=== PATIENT | female | born 1945 | race Two or more races ===

== ENCOUNTER 2022-04-28 13:16 | Emergency (ER) | payer BC, MEDICAID ==
[2022-04-28 13:34] VITALS: BP 153/110
== END 2022-04-28 20:50 | disposition left against medical advice (07) ==
LOC: ER 13:22
DX: S09.90XA Unspecified injury of head, initial encounter (principal); R11.0 Nausea; Z53.21 Procedure and treatment not carried out due to patient leaving prior to being seen by health care provider; X58.XXXA Exposure to other specified factors, initial encounter; Y93.89 Activity, other specified; Y92.89 Other specified places as the place of occurrence of the external cause; Y99.8 Other external cause status
CPT/HCPCS: 70450

== ENCOUNTER 2023-06-19 14:15 | Inpatient (IN) | payer MEDICAID ==
[~2023-06-19] VITALS: Ht 154.9 cm; Wt 73.2 kg
[2023-06-19 15:00] LABS: Basophils # (auto) 0 10 ^3/uL (0-0.2); Basophils % (auto) 0.3 % (0.0-2.0); Eosinophils # (auto) 0.2 10 ^3/uL (0-0.8); Eosinophils % (auto) 3.2 % (0.0-7.0); Hematocrit 37.1 % (36.0-46.0); Hemoglobin 12.4 g/dL (12.2-16.2); Lymphocytes # (auto) 1.1 10 ^3/uL (0.4-5.4); Lymphocytes % (auto) 18.1 % (10.0-50.0); Mean Corpuscular Hemoglobin 30.8 pg (28.0-32.0); Mean Corpuscular Hgb Conc. 33.4 g/dL (32.0-36.0); Mean Corpuscular Volume 92.3 fL (80.0-100.0); Monocytes # (auto) 0.5 10 ^3/uL (0-1.3); Monocytes % (auto) 8.4 % (0.0-12.0); Neutrophils # (auto) 4.1 10 ^3/uL (1.6-8.6); Red Blood Cells 4.02 10^6/uL (4.0-5.20); Red Cell Distribution Width 13.5 % (11.8-14.3); White Blood Cell 5.9 10^3/uL (4.4-10.8)
[2023-06-19 15:05] LABS: Urine Bacteria FEW /hpf (None Seen); Urine Blood Negative /uL (Negative); Urine Clarity Clear (Clear); Urine Color Yellow (Yellow); Urine Protein, UAD Negative (Negative); Urine Specific Gravity 1.027 (1.001-1.035); Urine Urobilinogen Normal (Negative); Urine WBC 8 /hpf (0 - 5); Urine pH 5.5 (5.0-8.0)
[2023-06-19 15:10] LABS: Chloride 104 mmol/L (98-107); Potassium 4.7 mmol/L (3.5-5.1); Sodium 138 mmol/L (136-145)
[2023-06-19 15:11] LABS: Anion Gap 4 (5-15); Carbon Dioxide 30 mmol/L (20-30)
[2023-06-19 15:16] LABS: BUN/Creatinine Ratio 20.4 (10.0-20.0); Blood Urea Nitrogen 19 mg/dL (9-23); Glucose 338 mg/dL (74-106)
[2023-06-19] MEDS ORDERED: ONDANSETRON HCL 4 MG/2 ML VIAL IV PRN (21:00)
[2023-06-19] MEDS ORDERED: ACETAMINOPHEN 325 MG TAB PO PRN (21:00)
[2023-06-19] MEDS ORDERED: DEXTROSE (50%) 50ML SYRG IV PRN (21:00)
[2023-06-19] MEDS: InsuLIN REG 1unit/0.01ml Soln (100units/ml) SC SCH (22:00)
[2023-06-19] MEDS: PANTOPRAZOLE 40 MG/10 ML VIAL INJ IV ONE (23:36)
[2023-06-19] MEDS: methylPREDNISolone SOD SUCC 125 MG/2 ML VL IV ONE (23:36)
[2023-06-19] MEDS: ACCU-CHEK COMFORT CURVE STRIP VI SCH (23:38)
[2023-06-19] MEDS: HYDROcodone-ACET 5/325MG TAB PO PRN (23:44)
[2023-06-20 04:00] VITALS: PULSE 82; RESP 17; O2SAT 95
[2023-06-20] MEDS ORDERED: ATOR10TA PO (04:17)
[2023-06-20] MEDS ORDERED: LOSA25TA15 PO (04:17)
[2023-06-20] MEDS ORDERED: METF-372 PO (04:17)
[2023-06-20 06:24] LABS: Basophils # (auto) 0 10 ^3/uL (0-0.2); Basophils % (auto) 0.2 % (0.0-2.0); Eosinophils # (auto) 0 10 ^3/uL (0-0.8); Eosinophils % (auto) 0.2 % (0.0-7.0); Hemoglobin 12.8 g/dL (12.2-16.2); Lymphocytes # (auto) 0.6 10 ^3/uL (0.4-5.4); Lymphocytes % (auto) 11.5 % (10.0-50.0); Mean Corpuscular Hemoglobin 30.7 pg (28.0-32.0); Mean Corpuscular Hgb Conc. 33.6 g/dL (32.0-36.0); Mean Corpuscular Volume 91.4 fL (80.0-100.0); Monocytes # (auto) 0.1 10 ^3/uL (0-1.3); Monocytes % (auto) 1.4 % (0.0-12.0); Neutrophils # (auto) 4.7 10 ^3/uL (1.6-8.6); Neutrophils % (auto) 86.7 % (37.0-80.0); Red Blood Cells 4.15 10^6/uL (4.0-5.20); Red Cell Distribution Width 13.6 % (11.8-14.3); White Blood Cell 5.4 10^3/uL (4.4-10.8)
[2023-06-20 06:43] LABS: Alanine Aminotransferase 13 U/L (7-40); Albumin 4.2 g/dL (3.2-4.8); Alkaline Phosphatase 125 U/L (46-116); Anion Gap 6 (5-15); Aspartate Aminotransferase 18 U/L (13-40); BUN/Creatinine Ratio 18.2 (10.0-20.0); Blood Urea Nitrogen 14 mg/dL (9-23); Calcium 9.2 mg/dL (8.5-10.1); Carbon Dioxide 26 mmol/L (20-30); Chloride 103 mmol/L (98-107); Glucose 198 mg/dL (74-106); Sodium 135 mmol/L (136-145)
[2023-06-20 06:44] LABS: Bilirubin, Total 0.5 mg/dL (0.2-1.0); Total Protein 7.2 g/dL (5.7-8.2)
[2023-06-20 08:00] VITALS: PULSE 68; RESP 16; O2SAT 96
[2023-06-20] MEDS: cefTRIAXone 1GM/50ML D5W 50 ML IV SCH (09:57)
[2023-06-20] MEDS: DOCUSATE SOD 100 MG CAP PO PRN (12:32)
[2023-06-20 12:42] VITALS: BP 116/71; PULSE 75; RESP 18; TEMP 97.9; O2SAT 97
[2023-06-20] MEDS: MESALAMINE 400mg Delayed Release Cap PO SCH (16:10)
[2023-06-20 17:00] VITALS: BP 149/71; PULSE 86; RESP 19; TEMP 97.9; O2SAT 97
[2023-06-20 20:00] VITALS: BP 121/70; PULSE 68; PULSE 72; RESP 16; RESP 18; TEMP 36.6; O2SAT 96
[2023-06-20 22:00] VITALS: BP 129/58; PULSE 60; RESP 14; TEMP 97.5; O2SAT 97
[2023-06-20] MEDS: metroNIDAZOLE 500MG/100ML 100 ML IV SCH (23:54)
[2023-06-21] VITALS (7 sets, daily range): BP systolic 122–156; BP diastolic 66–74; PULSE 60–68; RESP 18–20; TEMP 97.7–98.5; O2SAT 0–100
[2023-06-21 07:11] LABS: Basophils # (auto) 0 10 ^3/uL (0-0.2); Basophils % (auto) 0.2 % (0.0-2.0); Eosinophils # (auto) 0.1 10 ^3/uL (0-0.8); Eosinophils % (auto) 0.9 % (0.0-7.0); Hematocrit 35.8 % (36.0-46.0); Hemoglobin 11.8 g/dL (12.2-16.2); Lymphocytes # (auto) 1.4 10 ^3/uL (0.4-5.4); Lymphocytes % (auto) 19.9 % (10.0-50.0); Mean Corpuscular Hemoglobin 30.1 pg (28.0-32.0); Mean Corpuscular Hgb Conc. 32.8 g/dL (32.0-36.0); Mean Corpuscular Volume 91.7 fL (80.0-100.0); Monocytes # (auto) 0.8 10 ^3/uL (0-1.3); Monocytes % (auto) 10.8 % (0.0-12.0); Neutrophils # (auto) 4.8 10 ^3/uL (1.6-8.6); Neutrophils % (auto) 68.2 % (37.0-80.0); Red Blood Cells 3.91 10^6/uL (4.0-5.20); Red Cell Distribution Width 13.3 % (11.8-14.3)
[2023-06-21 07:22] LABS: Chloride 108 mmol/L (98-107); Sodium 140 mmol/L (136-145)
[2023-06-21 07:23] LABS: Anion Gap 5 (5-15); Calcium 9.1 mg/dL (8.5-10.1); Carbon Dioxide 27 mmol/L (20-30)
[2023-06-21 07:28] LABS: BUN/Creatinine Ratio 16.9 (10.0-20.0); Blood Urea Nitrogen 12 mg/dL (9-23); Glucose 82 mg/dL (74-106)
[2023-06-21 08:20] LABS: Erythrocyte Sedimentation Rate 13 mm/hr (0-20)
[2023-06-21] MEDS: methylPREDNISolone SOD SUCC 40 MG/ML VL IV SCH (08:47)
[2023-06-21] MEDS: GOLYTELY 4L KIT PO ONE (18:03)
[2023-06-22 04:46] LABS: Basophils # (auto) 0 10 ^3/uL (0-0.2); Basophils % (auto) 0.2 % (0.0-2.0); Eosinophils # (auto) 0 10 ^3/uL (0-0.8); Eosinophils % (auto) 0.5 % (0.0-7.0); Hematocrit 34.9 % (36.0-46.0); Hemoglobin 11.9 g/dL (12.2-16.2); Lymphocytes # (auto) 1.5 10 ^3/uL (0.4-5.4); Lymphocytes % (auto) 19.7 % (10.0-50.0); Mean Corpuscular Hemoglobin 30.9 pg (28.0-32.0); Mean Corpuscular Hgb Conc. 34.1 g/dL (32.0-36.0); Mean Corpuscular Volume 90.6 fL (80.0-100.0); Monocytes # (auto) 0.9 10 ^3/uL (0-1.3); Monocytes % (auto) 11.8 % (0.0-12.0); Neutrophils % (auto) 67.8 % (37.0-80.0); Red Blood Cells 3.85 10^6/uL (4.0-5.20); Red Cell Distribution Width 13.3 % (11.8-14.3); White Blood Cell 7.4 10^3/uL (4.4-10.8)
[2023-06-22 04:55] LABS: Chloride 106 mmol/L (98-107); Potassium 3.6 mmol/L (3.5-5.1); Sodium 141 mmol/L (136-145)
[2023-06-22 04:56] LABS: Anion Gap 5 (5-15); Calcium 8.8 mg/dL (8.5-10.1); Carbon Dioxide 30 mmol/L (20-30)
[2023-06-22 05:00] VITALS: BP 136/60; PULSE 65; RESP 18; TEMP 97.7; O2SAT 98
[2023-06-22 05:01] LABS: BUN/Creatinine Ratio 14.5 (10.0-20.0); Blood Urea Nitrogen 10 mg/dL (9-23); Glucose 63 mg/dL (74-106)
[2023-06-22] MEDS: GOLYTELY 4L KIT PO ONE (06:00)
[2023-06-22] MEDS: MAGNESIUM CITRATE SOLUTION 300 ML BTL PO ONE (07:44)
[2023-06-22 13:00] VITALS: BP 156/80; PULSE 57; RESP 18; TEMP 97.7; O2SAT 97
[2023-06-22] MEDS ORDERED: MIDAZOLAM HCL 5 MG/ML-1ML VIAL ONE (14:47)
[2023-06-22] MEDS ORDERED: diphenhdrAMINE HCL 50 MG/1 ML VL ONE (14:47)
[2023-06-22] MEDS ORDERED: fentaNYL CITRATE 100 MCG/2 ML VL ONE (14:47)
[2023-06-22] MEDS ORDERED: SODIUM CHLORIDE LOCK 10 ML ONE (14:51)
[2023-06-22 16:19] VITALS: O2SAT 100
[2023-06-22 16:45] VITALS: O2SAT 94
[2023-06-22 22:00] VITALS: BP 118/69; PULSE 75; RESP 16; TEMP 97.6; O2SAT 94
[2023-06-23 05:00] VITALS: BP 137/60; PULSE 54; RESP 18; TEMP 98; O2SAT 100
[2023-06-23 08:25] VITALS: BP 168/77; PULSE 72; RESP 18; TEMP 97.5; O2SAT 96
[2023-06-23] MEDS: LOSARTAN POTASSIUM 25 MG TAB PO ONE (11:34)
[2023-06-23 12:20] VITALS: BP 149/80; PULSE 96; RESP 20; TEMP 97.8; O2SAT 97
[2023-06-23 16:42] VITALS: BP 149/80; PULSE 96; RESP 20; TEMP 36.6; O2SAT 97
[2023-06-23] MEDS: PNEUMOCOCCAL VACC POLYS 25 MCG/0.5 ML VIAL IM ONE (17:00)
[2023-06-24] MEDS ORDERED: LOSARTAN POTASSIUM 25 MG TAB PO SCH (10:00)
== END 2023-06-23 17:40 | disposition home or self-care (01) | DRG 245 ==
LOC: ER 14:15 → OVERFLOW 20:51 → WEST WING 06-20 03:21
PROVIDERS: ADMIT Nurse Practitioner; ATTEND Nurse Practitioner Acute Care
PROC: 0DBN8ZX Excision of Sigmoid Colon, Via Natural or Artificial Opening Endoscopic, Diagnostic (ICD-10-PCS; 2023-06-22)
PROC: 0DBF8ZX Excision of Right Large Intestine, Via Natural or Artificial Opening Endoscopic, Diagnostic (ICD-10-PCS; principal; 2023-06-22 16:19)
DX: K51.911 Ulcerative colitis, unspecified with rectal bleeding (principal); E11.65 Type 2 diabetes mellitus with hyperglycemia; K44.9 Diaphragmatic hernia without obstruction or gangrene; M47.816 Spondylosis without myelopathy or radiculopathy, lumbar region; E78.5 Hyperlipidemia, unspecified; I10 Essential (primary) hypertension; Z82.49 Family history of ischemic heart disease and other diseases of the circulatory system; Z88.8 Allergy status to other drugs, medicaments and biological substances; Z79.899 Other long term (current) drug therapy; Z83.3 Family history of diabetes mellitus; N39.0 Urinary tract infection, site not specified
CPT/HCPCS: 36415; 45380; 74176; 80048; 80053; 81001; 82270; 82378; 82962; 83036; 83690; 85025; 85652; 86141; 87045; 87086; 87427; C9113; G0378; J1815; J2250; J3490

== ENCOUNTER → 2023-12-20 | Day surgery (SDC) | payer MEDICAID ==
[2023-12-16 12:14] LABS: Basophils # (auto) 0 10 ^3/uL (0-0.2); Basophils % (auto) 0.6 % (0.0-2.0); Eosinophils # (auto) 0.1 10 ^3/uL (0-0.8); Eosinophils % (auto) 2.5 % (0.0-7.0); Hematocrit 38.3 % (36.0-46.0); Hemoglobin 13.1 g/dL (12.2-16.2); Lymphocytes # (auto) 1.5 10 ^3/uL (0.4-5.4); Lymphocytes % (auto) 28.3 % (10.0-50.0); Mean Corpuscular Hemoglobin 30.9 pg (28.0-32.0); Mean Corpuscular Hgb Conc. 34.1 g/dL (32.0-36.0); Mean Corpuscular Volume 90.4 fL (80.0-100.0); Monocytes # (auto) 0.5 10 ^3/uL (0-1.3); Monocytes % (auto) 8.6 % (0.0-12.0); Neutrophils # (auto) 3.1 10 ^3/uL (1.6-8.6); Red Blood Cells 4.24 10^6/uL (4.0-5.20); Red Cell Distribution Width 14.7 % (11.8-14.3); White Blood Cell 5.2 10^3/uL (4.4-10.8)
[2023-12-16 12:30] LABS: INR 0.99 (0.9-1.15); Partial Thromboplastin Time 27.1 SEC (24.5-34.5); Prothrombin Time 10.5 sec (9.3-11.8)
[2023-12-16 12:56] LABS: Alanine Aminotransferase 14 U/L (7-40); Albumin 4.1 g/dL (3.2-4.8); Alkaline Phosphatase 87 U/L (46-116); Anion Gap 8 (5-15); Aspartate Aminotransferase 17 U/L (13-40); BUN/Creatinine Ratio 13.9 (10.0-20.0); Bilirubin, Total 0.6 mg/dL (0.2-1.0); Blood Urea Nitrogen 10 mg/dL (9-23); Calcium 9.3 mg/dL (8.7-10.4); Carbon Dioxide 28 mmol/L (20-30); Chloride 102 mmol/L (98-107); Glucose 92 mg/dL (74-106); Sodium 138 mmol/L (136-145); Total Protein 6.8 g/dL (5.7-8.2)
[~2023-12-20] VITALS: Ht 149.9 cm; Wt 70.3 kg
[~2023-12-20] MED LIST: METF-372 PO; SODIUM CHLORIDE LOCK 10 ML ONE
[2023-12-20 12:42] VITALS: O2SAT 97
[2023-12-20] MEDS: LIDOCAINE VISCOUS 2% 15ML UD ONE (12:45)
[2023-12-20] MEDS: diphenhdrAMINE HCL 50 MG/1 ML VL ONE (12:47)
[2023-12-20] MEDS: fentaNYL CITRATE 100 MCG/2 ML VL ONE (12:47)
[2023-12-20] MEDS: MIDAZOLAM HCL 5 MG/ML-1ML VIAL ONE (12:47)
[2023-12-20 12:57] VITALS: TEMP 98.2; O2SAT 94
[2023-12-20 13:27] VITALS: BP 145/76; PULSE 70; RESP 15; O2SAT 96
== END | disposition home or self-care (01) ==
LOC: GI 09:27
PROVIDERS: ATTEND Internal Medicine Gastroenterology
DX: R10.13 Epigastric pain (principal); K29.50 Unspecified chronic gastritis without bleeding; K44.9 Diaphragmatic hernia without obstruction or gangrene; K29.80 Duodenitis without bleeding; K51.30 Ulcerative (chronic) rectosigmoiditis without complications; I10 Essential (primary) hypertension; E11.9 Type 2 diabetes mellitus without complications; Z79.84 Long term (current) use of oral hypoglycemic drugs; Z79.899 Other long term (current) drug therapy; Z98.51 Tubal ligation status; Z87.891 Personal history of nicotine dependence; Z88.8 Allergy status to other drugs, medicaments and biological substances
CPT/HCPCS: 36415; 43239; 80053; 82962; 85025; 85610; 85730; 88305; 88312; 88342; J1200; J2250; J3010; J7030

== ENCOUNTER 2025-02-03 22:51 | Inpatient (IN) | payer MEDICAID ==
[~2025-02-03] VITALS: Ht 152.4 cm; Wt 73.0 kg
[~2025-02-03 22:51] MED LIST changes: -SODIUM CHLORIDE LOCK 10 ML ONE
[2025-02-04 00:23] LABS: Hematocrit 41.7 % (36.0-46.0); Hemoglobin 14.3 g/dL (12.2-16.2); Mean Corpuscular Hemoglobin 31.7 pg (28.0-32.0); Mean Corpuscular Volume 92.8 fL (80.0-100.0)
[2025-02-04 00:53] LABS: Alanine Aminotransferase 15 U/L (7-40); Albumin 4.2 g/dL (3.2-4.8); Alkaline Phosphatase 108 U/L (46-116); Anion Gap 9 (5-15); BUN/Creatinine Ratio 16.7 (10.0-20.0); Bilirubin, Total 0.4 mg/dL (0.2-1.0); Blood Urea Nitrogen 16 mg/dL (9-23); Calcium 9.0 mg/dL (8.7-10.4); Carbon Dioxide 28 mmol/L (20-31); Chloride 103 mmol/L (98-107); Glucose 143 mg/dL (74-106); Lipase 30 U/L (12-53); Potassium 4.0 mmol/L (3.5-5.1); Sodium 140 mmol/L (136-145); Total Protein 7.2 g/dL (5.7-8.2)
[2025-02-04 01:03] LABS: Lactic Acid w/Reflex 2.2 mmol/L (0.4-2.0)
[2025-02-04 02:17] LABS: Total Cells Counted 100.0 (100)
[2025-02-04 03:25] LABS: Alanine Aminotransferase 16 U/L (7-40); Albumin 4.1 g/dL (3.2-4.8); Alkaline Phosphatase 103 U/L (46-116); Anion Gap 11 (5-15); BUN/Creatinine Ratio 27.9 (10.0-20.0); Bilirubin, Total 0.5 mg/dL (0.2-1.0); Calcium 8.8 mg/dL (8.7-10.4); Carbon Dioxide 28 mmol/L (20-31); Chloride 103 mmol/L (98-107); Lipase 24 U/L (12-53); Potassium 4.4 mmol/L (3.5-5.1); Sodium 142 mmol/L (136-145); Total Protein 6.7 g/dL (5.7-8.2)
[2025-02-04 03:36] LABS: Blood Urea Nitrogen 24 mg/dL (9-23); Glucose 150 mg/dL (74-106)
--- NOTE | 2025-02-04 04:22 | ED.PDOC ---
History of Present Illness HPI Comments 79-year-old female who presents with chief complaint of nonradiating, epigastric abdominal pain, nausea, and vomiting. Endorsement of sudden, unprovoked, atraumatic onset of symptoms, last night, with no prior history. Pain is a 6/10 in severity. Associated decreased stool output. Significant history for ulcerative colitis. Denies any bloody or bilious vomitus, diarrhea, constipation, fever, chills, further associated symptoms. REVIEW OF SYSTEMS: General: No fever, no chills, or fatigue HEENT: No sore throat, no earache, no congestion, no neck pain. Cardiac: No chest pain. No palpitations. Lungs: No shortness of breath, no cough. GI: Abdominal pain, nausea, vomiting, no diarrhea, no constipation : No dysuria, frequency, or urgency. No hematuria. Musculoskeletal: No joint pain , no joint swelling, no extremity edema. Skin: No rash, no itching. Neuro: No headache, no dizziness, no weakness PHYSICAL EXAM: General: Awake, alert and oriented. No acute distress. Skin: Skin in warm, dry and intact. Appropriate color for ethnicity. HEENT: The head is normocephalic and atraumatic. Conjunctivae are clear without exudates or hemorrhage. Sclera is non-icteric. EOM are intact. No signs of nystagmus. Eyelids are normal in appearance without swelling or lesions. Oral mucosa is pink and moist Neck: The neck is supple with normal range of motion. No JVD. Cardiac: Heart rate and rhythm are normal. No murmurs, gallops, or rubs are auscultated. Respiratory: No signs of respiratory distress. Lung sounds are clear in all lobes bilaterally without rales, rhonchi, or wheezes. Abdominal: Epigastric abdominal tenderness. CVA tenderness. Remaining abdomen is soft, non-tender without distention, guarding or rigidity. Bowel sounds are present and normoactive in all four quadrants. Extremities: Upper and lower extremities are atraumatic in appearance without deformity or edema. Neurological: The patient is awake, alert and oriented to person, place, and time with normal speech. Speech is clear. There is no facial asymmetry. Psychiatric: Appropriate mood and affect. Good judgement and insight. Chief Complaint: Abdominal Pain Time Seen by MD: 00:43 Primary Care Provider: TAMMY Allergies: Coded Allergies: Lisinopril (Verified Allergy, Unknown, 04/28/22) Home Meds Reported Medications Mesalamine (DELZICOL) 400 Mg Cap, 800 MG PO, CAP 02/04/25 Losartan Potassium (Losartan Potassium) 50 Mg Tab, 1 TAB PO BID 02/04/25 Atorvastatin Calcium (ATORVASTATIN CALCIUM) 10 Mg Tab, 1 TAB PO DAILY 02/04/25 Metformin Hydrochloride (Metformin Hcl) 1,000 Mg Tab, 1 TAB PO BID, #60 TAB 5 Refills 06/20/23 Information Source: Patient, Relative Mode of Arrival: Ambulatory Past Medical History PAST MEDICAL HISTORY: DM, High Lipids, HTN Surgical History: Denies all surgeries [employer]POSITION [employer]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 Family History Family History: Family hx of DM, Family hx of HTN Social History Smoker: Non-Smoker Alcohol: Denies ETOH Use Drugs: Denies Drug Use Lives In: Home All Other Systems: Reviewed and Negative (As per HPI) Physical Exam General Appearance: No Apparent Distress, Normal HEENT: Normal ENT Inspection, Pharynx Normal, TMs Normal Neck: Full Range of Motion, Non-Tender, Normal, Normal Inspection Respiratory: Chest Non-Tender, Lungs Clear, No Accessory Muscle Use, No Respiratory Distress, Normal Breath Sounds Cardiovascular: No Edema, No JVD, No Murmur, No Gallop, Normal Peripheral Pulses, Regular Rate/Rhythm Breast Exam: Deferred Gastrointestinal: No Organomegaly, No Pulsatile Mass, Normal Bowel Sounds, Soft, Tenderness (EPIGASTRIC WITH BILATERAL CVA TENDERNESS) Genitalia: Deferred Pelvic: Deferred Rectal: Deferred Extremities: No calf tenderness, Normal capillary refill, Normal inspection, Normal range of motion, Non-tender, No pedal edema Musculoskeletal : Apperance: Normal Neurologic: Alert, family assistant II-XII nml as Tested, No Motor Deficits, Normal Affect, Normal Mood, No Sensory Deficits Cerebellar Function: Normal Reflexes: Normal Skin: Dry, Normal Color, Warm Lymphatic: No Adenopathy Was a procedure done? Was a procedure done?: No Differential Dx Considerations may include: DIFFERENTIAL DIAGNOSES CONSIDERED INCLUDE: ABDOMINAL AORTIC ANEURYSM, TN, ESOPHAGEAL RUPTURE, INTESTINAL OBSTRUCTION, MESENTERIC ISCHEMIA, PERFORATED VISCUS OR SOLID ORGAN RUPTURE, CHF WITH HEPATOMEGALY, PNEUMONIA, ABSCESS, APPENDICITIS, BILIARY DISEASE, DIVERTICULITIS, GASTRITIS, GASTROENTERITIS, HEPATITIS, HERNIA, INFLAMMATORY BOWEL DISEASE, PANCREATITIS, PEPTIC ULCER DISEASE, URINARY TRACT INFECTION, URETERAL COLIC, CONSTIPATION, GERD, IRRITABLE SYNDROME, ABDOMINAL WALL PAIN, NONSPECIFIC ABDOMINAL PAIN, HERPES ZOSTER, NEPHROLITHIASIS. [ ]ALSO RUPTURED ECTOPIC , OVARIAN TORSION/CYST, TUBO- OVARIAN ABSCESS, PID, ENDOMETRIOSIS, MITTLESCHMERZ. X-Ray, Labs, Meds, VS Vital Signs Date Time Temp Pulse Resp B/P (MAP) Pulse Ox O2 Delivery O2 Flow Rate FiO2 02/04/25 06:10 93 Room Air* 0 21 02/04/25 06:09 98.5 71 14 118/74 (89) 93 98.5 02/03/25 22:55 97.8 91 20 166/72 93 97.8 Lab Test 02/04/25 06:43 02/04/25 02:30 02/03/25 23:41 02/03/25 23:03 Range/Units Troponin I High Sensitivity 47 *H 45 *H 14 </=34 ng/L Sodium Level 142 140 136-145 mmol/L Potassium Level 4.4 4.0 3.5-5.1 mmol/L Chloride Level 103 103 98-107 mmol/L Carbon Dioxide Level 28 28 20-31 mmol/L Anion Gap 11 9 5-15 Blood Urea Nitrogen 24 H 16 9-23 mg/dL Creatinine 0.86 0.96 0.550-1.02 mg/dL Glomerular Filtration Rate Calc 69 61 >90 mL/min BUN/Creatinine Ratio 27.9 H 16.7 10.0-20.0 Serum Glucose 150 H 143 H 74-106 mg/dL Lactic Acid Level 2.9 *H 2.2 *H 0.4-2.0 mmol/L Calcium Level 8.8 9.0 8.7-10.4 mg/dL Total Bilirubin 0.5 0.4 0.2-1.0 mg/dL Aspartate Amino Transferase (AST) 22 22 13-40 U/L Alanine Aminotransferase (ALT) 16 15 7-40 U/L Alkaline Phosphatase 103 108 46-116 U/L Total Protein 6.7 7.2 5.7-8.2 g/dL Albumin 4.1 4.2 3.2-4.8 g/dL Lipase 24 30 12-53 U/L White Blood Count 10.4 4.4-10.8 10^3/uL Red Blood Count 4.50 4.0-5.20 10^6/uL Hemoglobin 14.3 12.2-16.2 g/dL Hematocrit 41.7 36.0-46.0 % Mean Corpuscular Volume 92.8 80.0-100.0 fL Mean Corpuscular Hemoglobin 31.7 28.0-32.0 pg Mean Corpuscular Hemoglobin Concent 34.2 32.0-36.0 g/dL Red Cell Distribution Width 13.7 11.8-14.3 % Platelet Count 172 140-450 10^3/uL Mean Platelet Volume 9.5 6.9-10.8 fL Neutrophils (%) (Auto) 37.0-80.0 % Lymphocytes (%) (Auto) 10.0-50.0 % Monocytes (%) (Auto) 0.0-12.0 % Basophils (%) (Auto) 0.0-2.0 % Neutrophils # (Auto) 1.6-8.6 10 ^3/uL Lymphocytes # (Auto) 0.4-5.4 10 ^3/uL Monocytes # (Auto) 0-1.3 10 ^3/uL Differential Total Cells Counted 100.0 100 Neutrophils % (Manual) 93 H 37.0-80.0 Band Neutrophils % (Manual) 4 Lymphocytes % (Manual) 2 L 10.0-50.0 Monocytes % (Manual) 1 0-12 Eosinophils % (Manual) 0 0-7 Basophils % (Manual) 0 0.0-2.0 Metamyelocytes % (manual) 0 Myelocytes % (Manual) 0 Promyelocytes % (Manual) 0 Blast Cells % (Manual) 0 Reactive Lymphocytes 0 Platelet Estimate Adequate POC Glucose 151 H 70-106 mg/dl Current Medications Medications (Trade) Dose Ordered Sig/Larry Route Start Time Stop Time Status Last Admin Aspirin 324 mg ONCE ONCE PO 02/04/25 04:30 02/04/25 04:31 DC 02/04/25 06:07 [place] [id number] Ph: [phone] DIAGNOSTIC IMAGING Diagnostic Imaging Report : [id number] Signed PATIENT: AYESHA COHEN ACCT: [id number] UNIT: [id number] : 1945 LOC: ER ROOM / BED: / AGE / SEX: 79 / F ADM STATUS: REG ER SERVICE DT: 09/419 ORDERING PHYSICIAN: REYNALDO COLBY MD PROCEDURE(s): CXR1 - CHEST XRAY 1 VIEW REASON: Epigastric pain ORDER NUMBER(s): [id number], ACCESSION NUMBER(s): [id number] CHEST RADIOGRAPH Indication: Epigastric pain Technique: 1 view Comparison: None FINDINGS: Lines and Tubes: None Lungs/Pleura: No focal consolidation, pleural effusion or pneumothorax. Mild scarring/atelectasis of the lung bases. Cardiomediastinum: Normal heart size. Aortic atherosclerosis. Other: No acute osseous abnormality. IMPRESSION: 1. No acute cardiopulmonary abnormality. ATED BY: BERNARDA THORNTON MD DICTATED DATE/TIME: 02/04/25457 SIGNED BY: BERNARDA THORNTON MD SIGNED DATE/TIME: 02/04/25457 CC: Time of 1ST Reevaluation: 00:13 Reevaluation 1ST: Unchanged Patient Education/Counseling: Treatment, Other (need for admission ) Family Education/Counseling: Treatment, Other (need for admission ) SEPSIS Sepsis Screen Date sepsis recognized/suspect: Feb 03, 2025 Time Sepsis recognized/suspect: 2256 Recent Procedure: No On Antibiotic Therapy: No Respiratory Rate >20: No Heart Rate >90: No Temp<36 C (96.8 F) or >38.3 C: No SBP <90 or MAP <65 mmHG: No New Acute Mental Status Change: No Is the patient on CPAP, BIPAP,: No Physician Orders Electrocardigram (02/03/25 23:14) Chest Xray 1 View (02/04/25 04:20) Vital Signs Date Time Temp Pulse Resp B/P (MAP) Pulse Ox O2 Delivery O2 Flow Rate FiO2 02/04/25 06:10 93 Room Air* 0 21 02/04/25 06:09 98.5 71 14 118/74 (89) 93 98.5 02/03/25 22:55 97.8 91 20 166/72 93 97.8 Laboratory Tests Test 02/03/25 23:41 02/04/25 02:30 Lactic Acid Level 2.2 mmol/L (0.4-2.0) *H 2.9 mmol/L (0.4-2.0) *H White Blood Count 10.4 10^3/uL (4.4-10.8) Departure 1 Departure Time of Disposition: 04:21 Impression: Primary Impression: Elevated troponin Additional Impressions: Epigastric abdominal pain Lactic acidemia Disposition: ADMITTED INPATIENT Condition: Guarded Comments 79-year-old female who presented with epigastric abdominal pain, nausea, vomiting. MDM: Extensive evaluation was performed in attempt to identify or rule out: (See differential diagnosis section) The following tests were ordered, and results were reviewed by me and discussed with patient: (See diagnostic results section) Additional information was gathered from interviewing the following independent historians: Patient's daughter at bedside Decision regarding hospitalization or escalation of hospital level of care: Risk and benefits of admission for further treatment of patient's condition was considered. Due to patient's current clinical condition, high risk of decline and poor outcome if discharged and need for further inpatient management and monitoring, patient will be admitted to the hospital. Critical Care Note Critical Care Time?: No Stability Stability form required: No Heart Score Heart Score: Heart Score Response (Comments) Value History N/A 0 EKG N/A 0 Age N/A 0 Risk Factors N/A 0 Troponin N/A 0 Total 0 I personally scribed for REYNALDO COLBY MD ([email or web address]) on 02/04/25 at 05:26. Electronically submitted by Valeriano Fish ([email or web address]). REYNALDO COLBY MD Feb 04, 2025 04:22
--- NOTE | 2025-02-04 05:00 | DVH ---
CHEST RADIOGRAPH Indication: Epigastric pain Technique: 1 view Comparison: None FINDINGS: Lines and Tubes: None Lungs/Pleura: No focal consolidation, pleural effusion or pneumothorax. Mild scarring/atelectasis of the lung bases. Cardiomediastinum: Normal heart size. Aortic atherosclerosis. Other: No acute osseous abnormality. IMPRESSION: 1. No acute cardiopulmonary abnormality.
[2025-02-04] MEDS: ACETAMINOPHEN 500 MG TAB or CAP PO ONE ×2 (06:08→06:18)
[2025-02-04] MEDS: ONDANSETRON ODT 4 MG TAB PO ONE (06:08)
[2025-02-04] MEDS: SODIUM CHLORIDE 0.9% 1,000 ML IV ONE (06:08)
[2025-02-04 06:10] VITALS: O2SAT 93
[2025-02-04] MEDS: ONDANSETRON ODT 4 MG TAB ONE (06:18)
[2025-02-04] MEDS ORDERED: NITROGLYCERIN 0.4 MG SL TAB SL PRN (11:15)
[2025-02-04] MEDS ORDERED: MORPHINE SULFATE INJ 2 MG/ml SYRG IV PRN (11:15)
[2025-02-04] MEDS: MESALAMINE 400mg Delayed Release Cap PO ONE (11:15)
--- NOTE | 2025-02-04 11:25 | DVHHP2 ---
JHONYNINOANNA RESIDENT 02/04/25 1125: History of Present Illness History of Present Illness Patient is 79-year-old female with past medical history of ulcerative colitis, hypertension, diabetes mellitus, dyslipidemia who came to the hospital with a chief complaint of acute onset of epigastric abdominal pain, onset on 02/03/2025 around 3 p.m., associated with intractable nausea and vomiting, bilious in nature, multiple vomiting, prompted visit to the hospital. As per patient he had similar symptoms few weeks ago as well, usually she fell similar kind of symptoms when she has flares of ulcerative colitis. Usually bleeding per rectum, but sometimes patient might epigastric pain as well. Patient has upper GI endoscopy done on 12/20/2023 which showed mild gastritis with mild duodenitis and 1 cm sliding hiatal hernia. Patient also underwent colonoscopy on 06/22/2023 which showed mild ulcerative procto sigmoiditis. Patient denying any other symptoms including chest pain, shortness of breath, fever, chills, diarrhea, motor weakness or sensory deficits. PMH:ulcerative colitis, hypertension, diabetes mellitus, dyslipidemia Past surgical history: Bilateral fallopian tube dissection Personal history: Smoked cigarettes occasionally in her 20s, no any other drug use history, lives with family. Allergy lisinopril Family history noncontributory Medication: Mesalamine, losartan, metformin Review of Systems Constitutional: No: Fever, Chills, Sweats, Weakness, Malaise, Other Eyes: No: Pain, Vision change, Conjunctivae inflammation, Eyelid inflammation, Other, Redness ENT: No: Ear pain, Ear discharge, Nose pain, Nose discharge, Nose congestion, Mouth pain, Mouth swelling, Throat pain, Throat swelling, Other Respiratory: No: Cough, Dry, Shortness of breath, SOB with excertion, Wheezing, Hemoptysis, Pleuritic Pain, Sputum, Wheezing, Other Cardiovascular: No: Chest Pain, Palpitations, Orthopnea, Paroxysmal Noc. Dyspnea, Edema, Lt Headedness, Other Gastrointestinal: Nausea, Vomiting, Abdominal Pain Genitourinary: No Dysuria, No Frequency, No Incontinence, No Hematuria, No Retention, No Other Musculoskeletal: No: other, neck pain, shoulder pain, arm pain, back pain, hand pain, leg pain, foot pain Skin: No: Rash, Lesions, Jaundice, Bruising, Other Neurological: No: Weakness, Numbness, Incoordination, Change in speech, Confusion, Seizures, Other Allergies: Coded Allergies: Lisinopril (Verified Allergy, Unknown, 04/28/22) Exam Vital Signs Vital Signs Date Time Temp Pulse Resp B/P (MAP) Pulse Ox O2 Delivery O2 Flow Rate FiO2 02/04/25 06:10 93 Room Air* 0 21 02/04/25 06:09 98.5 71 14 118/74 (89) 98.5 General Appearance: Alert, Oriented X3, Cooperative, No acute distress HEENT: Atraumatic, PERRLA, EOMI, Mucous membr. moist/pink Respiratory: Clear to auscultation, Normal air movement Cardiovascular: Regular rate, Normal S1, Normal S2 Abdominal: Normal bowel sounds, Soft, No tenderness Extremities: No clubbing, No cyanosis, No edema Skin: No breakdown, No significant lesion Neuro: Normal gait, Normal speech, Strength at 5/5 X4 ext, Normal tone, Sensation intact, Cranial nerves 3-12 NL, Reflexes 2+ Psych/Mental Status: Mood NL Labs/Xrays Labs Test 02/04/25 06:43 02/04/25 02:30 02/03/25 23:41 02/03/25 23:03 Range/Units Troponin I High Sensitivity 47 *H </=34 ng/L Sodium Level 142 136-145 mmol/L Potassium Level 4.4 3.5-5.1 mmol/L Chloride Level 103 98-107 mmol/L Carbon Dioxide Level 28 20-31 mmol/L Anion Gap 11 5-15 Blood Urea Nitrogen 24 H 9-23 mg/dL Creatinine 0.86 0.550-1.02 mg/dL Glomerular Filtration Rate Calc 69 >90 mL/min BUN/Creatinine Ratio 27.9 H 10.0-20.0 Serum Glucose 150 H 74-106 mg/dL Lactic Acid Level 2.9 *H 0.4-2.0 mmol/L Calcium Level 8.8 8.7-10.4 mg/dL Total Bilirubin 0.5 0.2-1.0 mg/dL Aspartate Amino Transferase (AST) 22 13-40 U/L Alanine Aminotransferase (ALT) 16 7-40 U/L Alkaline Phosphatase 103 46-116 U/L Total Protein 6.7 5.7-8.2 g/dL Albumin 4.1 3.2-4.8 g/dL Lipase 24 12-53 U/L White Blood Count 10.4 4.4-10.8 10^3/uL Red Blood Count 4.50 4.0-5.20 10^6/uL Hemoglobin 14.3 12.2-16.2 g/dL Hematocrit 41.7 36.0-46.0 % Mean Corpuscular Volume 92.8 80.0-100.0 fL Mean Corpuscular Hemoglobin 31.7 28.0-32.0 pg Mean Corpuscular Hemoglobin Concent 34.2 32.0-36.0 g/dL Red Cell Distribution Width 13.7 11.8-14.3 % Platelet Count 172 140-450 10^3/uL Mean Platelet Volume 9.5 6.9-10.8 fL Neutrophils (%) (Auto) 37.0-80.0 % Lymphocytes (%) (Auto) 10.0-50.0 % Monocytes (%) (Auto) 0.0-12.0 % Basophils (%) (Auto) 0.0-2.0 % Neutrophils # (Auto) 1.6-8.6 10 ^3/uL Lymphocytes # (Auto) 0.4-5.4 10 ^3/uL Monocytes # (Auto) 0-1.3 10 ^3/uL Differential Total Cells Counted 100.0 100 Neutrophils % (Manual) 93 H 37.0-80.0 Band Neutrophils % (Manual) 4 Lymphocytes % (Manual) 2 L 10.0-50.0 Monocytes % (Manual) 1 0-12 Eosinophils % (Manual) 0 0-7 Basophils % (Manual) 0 0.0-2.0 Metamyelocytes % (manual) 0 Myelocytes % (Manual) 0 Promyelocytes % (Manual) 0 Blast Cells % (Manual) 0 Reactive Lymphocytes 0 Platelet Estimate Adequate POC Glucose 151 H 70-106 mg/dl SEPSIS Sepsis Screen Date sepsis recognized/suspect: Feb 03, 2025 Time Sepsis recognized/suspect: 2256 Recent Procedure: No On Antibiotic Therapy: No Respiratory Rate >20: No Heart Rate >90: No Temp<36 C (96.8 F) or >38.3 C: No SBP <90 or MAP <65 mmHG: No New Acute Mental Status Change: No Is the patient on CPAP, BIPAP,: No Physician Orders Chest Xray 1 View (02/04/25 04:20) Admit (02/04/25 11:05) Nitroglycerin Sublingual (Ntrostat Subli (02/04/25 11:15) Morphine Sulfate Injection (02/04/25 11:15) Emergency Dysrhythmia Protocol (02/04/25 11:05) Rhythm Strips Once Every Shift (02/04/25 11:05) Stat Ekg For Chest Pain (02/04/25 11:05) Notify Of Changes From Base (02/04/25 11:05) Tennis Net Maker For 24 Hours (02/04/25 11:05) Sodium Chloride 0.9% (02/04/25 11:15) Clear Liq Diet (02/04/25 Lunch) Urinalysis (02/04/25 11:05) Prednisone Tablet (02/04/25 11:15) Prednisone Tablet (02/05/25 10:00) Electrocardigram (02/04/25 11:05) Mesalamine Dr Capsule (Delzicol Delayed (02/04/25 11:15) Mesalamine Dr Capsule (Delzicol Delayed (02/04/25 22:00) Famotidine Tablet (Pepcid Tablet) (02/05/25 10:00) Famotidine Tablet (Pepcid Tablet) (02/04/25 11:30) Ondansetron Hcl (Zofran) (02/04/25 11:30) Lactic Acid W/ Reflex Order (02/04/25 11:18) Troponin-I Hs (02/04/25 11:18) Ceftriaxone Ivpb Rocephin (02/05/25 09:00) Ceftriaxone Ivpb Rocephin (02/04/25 11:30) Metronidazole Ivpb Flagyl (02/04/25 14:00) Vital Signs Date Time Temp Pulse Resp B/P (MAP) Pulse Ox O2 Delivery O2 Flow Rate FiO2 02/04/25 06:10 93 Room Air* 0 21 02/04/25 06:09 98.5 71 14 118/74 (89) 93 98.5 Laboratory Tests Test 02/03/25 23:41 02/04/25 02:30 Lactic Acid Level 2.2 mmol/L (0.4-2.0) *H 2.9 mmol/L (0.4-2.0) *H White Blood Count 10.4 10^3/uL (4.4-10.8) Medications Medications Dose Ordered Sig/Larry Route Start Time Stop Time Status Last Admin Dose Admin Acetaminophen 1,000 mg ONCE ONCE PO 02/04/25 01:30 02/04/25 01:31 DC 02/04/25 06:08 1,000 MG Aspirin 324 mg ONCE ONCE PO 02/04/25 04:30 02/04/25 04:31 DC 02/04/25 06:07 324 MG Sodium Chloride 1,000 ml @ 1,000 mls/hr Q1H ONCE IV 02/04/25 03:45 02/04/25 04:44 DC 02/04/25 06:08 1,000 MLS/HR Tramadol HCl 50 mg ONCE ONCE PO 02/04/25 01:30 02/04/25 01:31 DC 02/04/25 06:07 50 MG Assessment/Plan Assessment/Plan Intractable nausea and vomiting? Ulcerative colitis versus acute colitis -IV fluid -prednisolone 40 mg p.o. daily -mesalamine 800 p.o. t.i.d. -IV ceftriaxone and metronidazole Sepsis likely due to acute ulcerative colitis exacerbation versus acute colitis -IV antibiotic with ceftriaxone metronidazole -IV fluid -trend lactic acidosis Lactic acidosis -2.9 -IV fluid -repeat lactic acid level NSTEMI type 2 likely due to severe dehydration -troponin 14, 45, 47. No active chest pain -ED physician gave aspirin 324 mg p.o. once. -EKG Diabetes mellitus type 2 A1c 6.4 on 06/20/2023 -insulin sliding scale -repeat A1c -atorvastatin 20 mg p.o. daily Hypertension -losartan 50 mg p.o. daily History of GERD -famotidine 40 mg p.o. daily DVT prophylaxis: Patient is ambulatory Goals of care discussed greater than 24 minutes, full code status. Plan discussed with Dr. Mott Plan discussed with: Patient, Daughter, Other My Orders Orders - ANNA BOOKER RESIDENT Procedure Category Date Status Time Admit ADMIT 02/04/25 Transmitted 11:05 Nitroglycerin PHA 02/04/25 Logged Sublingual (Ntrostat 11:15 Morphine Sulfate PHA 02/04/25 Logged Injection 11:15 Emergency Dysrhythmia SERJIO 02/04/25 In Process Protocol 11:05 Rhythm Strips Once SERJIO 02/04/25 In Process Every Shift 11:05 Stat Ekg For Chest SERJIO 02/04/25 In Process Pain 11:05 Notify Md Of Changes [facility] 02/04/25 In Process From Base 11:05 Tennis Net Maker For [facility] 02/04/25 In Process 24 Hours 11:05 Sodium Chloride 0.9% PHA 02/04/25 Logged 11:15 Clear Liq Diet DIET 02/04/25 Transmitted Lunch Urinalysis LAB 02/04/25 Logged 11:05 Prednisone Tablet PHA 02/04/25 Logged 11:15 Prednisone Tablet PHA 02/05/25 Logged 10:00 Electrocardigram EKG 02/04/25 Logged 11:[address] Capsule PHA 02/04/25 Logged (Delzicol Delayed 11:[address] Capsule PHA 02/04/25 Logged (Delzicol Delayed 22:00 Famotidine Tablet PHA 02/05/25 Logged (Pepcid Tablet) 10:00 Famotidine Tablet PHA 02/04/25 Logged (Pepcid Tablet) 11:30 Ondansetron Hcl PHA 02/04/25 Logged (Zofran) 11:30 Lactic Acid W/ Reflex LAB 02/04/25 Logged Order 11:18 Troponin-I Hs LAB 02/04/25 Logged 11:18 Ceftriaxone Ivpb PHA 02/05/25 Verified Rocephin 09:00 Ceftriaxone Ivpb PHA 02/04/25 Verified Rocephin 11:30 Metronidazole Ivpb PHA 02/04/25 Verified Flagyl 14:00 Date of Service: Feb 04, 2025 Billing Provider: ANNA BOOKER Common Visit Codes: [id number] INP/OBS CARE (HIGH) ANGELIC MOTT MD 02/07/25 1309: Review of Systems Allergies: Coded Allergies: Lisinopril (Verified Allergy, Unknown, 04/28/22) ANNA BOOKER Feb 04, 2025 11:25 ANGELIC MOTT MD Feb 07, 2025 13:09
[2025-02-04] MEDS ORDERED: ONDANSETRON HCL 4 MG/2 ML VIAL IV PRN (11:30)
[2025-02-04] MEDS: FAMOTIDINE 20 MG TAB PO ONE (20:37)
[2025-02-04] MEDS: predniSONE 20 MG TAB PO ONE (20:37)
[2025-02-04] MEDS: SODIUM CHLORIDE 0.9% 1,000 ML IV SCH (21:15)
[2025-02-04] MEDS ORDERED: MESALAMINE 400mg Delayed Release Cap PO SCH (22:00)
[2025-02-04] MEDS: MESALAMINE 400mg Delayed Release Cap PO SCH (22:07)
[2025-02-04] MEDS: ATORVASTATIN 20 MG TAB PO SCH (22:07)
[2025-02-04] MEDS ORDERED: LOSA-534 PO (22:15)
[2025-02-04] MEDS ORDERED: ATOR10TA52 PO (22:15)
[2025-02-04 22:16] VITALS: BP 150/73; PULSE 60; RESP 17; TEMP 97.6; O2SAT 95
[2025-02-04] MEDS ORDERED: MESA400C PO (22:16)
[2025-02-04 22:25] VITALS: BP 150/73; PULSE 60; RESP 17; TEMP 97.6; O2SAT 95
[2025-02-05] VITALS (8 sets, daily range): BP systolic 118–162; BP diastolic 56–85; PULSE 56–118; RESP 15–56; TEMP 97.8–98.6; O2SAT 94–97
[2025-02-05] MEDS: predniSONE 20 MG TAB PO SCH (08:51)
[2025-02-05] MEDS: FAMOTIDINE 20 MG TAB PO SCH (08:52)
--- NOTE | 2025-02-05 12:41 | DVHPN2 ---
Reviewed: Care Plan, H&P, Labs, Medications, Previous Orders, Radiology Changes from previous H/P or p: No Changes Eyes: No Pain, No Vision change, No Conjunctivae inflammation, No Eyelid inflammation, No Other, No Redness ENT: No Ear pain, No Ear discharge, No Nose pain, No Nose discharge, No Nose congestion, No Mouth pain, No Mouth swelling, No Throat pain, No Throat swelling, No Other Cardiovascular: No Chest Pain, No Palpitations, No Orthopnea, No Paroxysmal Noc. Dyspnea, No Edema, No Lt Headedness, No Other Respiratory: No Cough, No Dry, No Shortness of breath, No SOB with excertion, No Wheezing, No Hemoptysis, No Pleuritic Pain, No Sputum, No Other Gastrointestinal: Nausea, Vomiting, Abdominal Pain Genitourinary: No Dysuria, No Frequency, No Incontinence, No Hematuria, No Retention, No Other Musculoskeletal: No other, No neck pain, No shoulder pain, No arm pain, No back pain, No hand pain, No leg pain, No foot pain Skin: No Rash, No Lesions, No Jaundice, No Bruising, No Other Objective Vitals Vital Signs Date Time Temp Pulse Resp B/P (MAP) Pulse Ox O2 Delivery O2 Flow Rate FiO2 02/05/25 09:00 98.2 66 15 157/83 (107) 96 98.2 02/04/25 22:16 Room Air* 0 21 Intake/Output Intake and Output 02/05/25 07:00 Intake Total 240 ml Balance 240 ml Intake Oral 240 ml Medications Current Medications Medications Dose Ordered Sig/Larry Route Start Time Stop Time Status Last Admin Dose Admin Nitroglycerin 0.4 mg Q5MINP PRN SL 02/04/25 11:15 Morphine Sulfate 2 mg Q30M PRN IV 02/04/25 11:15 Sodium Chloride 1,000 ml @ 100 mls/hr Q10H IV 02/04/25 11:15 02/04/25 22:04 100 MLS/HR Prednisone 40 mg DAILY PO 02/05/25 10:00 02/05/25 08:51 40 MG Famotidine 40 mg DAILY PO 02/05/25 10:00 02/05/25 08:52 40 MG Ondansetron HCl 4 mg Q4HPRN PRN IV 02/04/25 11:30 Ceftriaxone Sodium 50 ml @ 100 mls/hr DAILY@09 IV 02/05/25 09:00 02/05/25 08:51 100 MLS/HR Metronidazole 100 ml @ 100 mls/hr Q8HR IV 02/04/25 14:00 02/05/25 05:29 100 MLS/HR Atorvastatin Calcium 20 mg HS PO 02/04/25 22:00 02/04/25 22:07 20 MG Mesalamine 800 mg TID PO 02/04/25 22:00 02/05/25 05:30 800 MG Laboratory Results Laboratory Tests 02/03/25 23:41 02/04/25 02:30 HgA1c, TSH Test 02/04/25 14:51 Hemoglobin A1c 6.3 % A1C (<5.7) H Labs and/or images reviewed: Labs reviewed by me, Image(s) reviewed by me Assessment/Plan Assessment/Plan Acute intractable abdominal pain with nausea: Ulcerative colitis versus acute colitis Rocephin Flagyl mesalamine prednisone, consult for GI Dr. Felisa Lieberman Sepsis due to acute ulcerative colitis Lactic acidosis Non ST-elevation MO type 2 secondary to dehydrate Diabetes A1c 6.4 Hypotension History of GERD Plan discussed with: Patient Date of Service: Feb 05, 2025 Billing Provider: VINITA LUCERO MD Common Visit Codes: [id number] INP/OBS CARE(HIGH) VINITA LUCERO MD Feb 05, 2025 12:40
--- NOTE | 2025-02-05 14:29 | DVHINCON2 ---
GI Consult Consult Note GI consult note Date of Consultation: 02/06/2024 Chief Complaint: Ulcerative colitis Referring Physician: Dr. Aniya Lucero H&P: 71-year-old female admitted with complains of epigastric abdominal pain for the past one month, pain starts in the epigastric area and radiates down to her lower abdomen, now is four on a 0-10 pain scale. Patient has nausea and vomiting, denies hematemesis. Denies any symptoms of diarrhea. Patient has similar symptoms when her ulcerative colitis flares up. Patient was diagnosed with ulcerative colitis 28 years ago Status post EGD 12/20/2023 diagnosed with gastritis and hiatal hernia. Status post colonoscopy 06/22/2023 diagnosed with mild ulcerative proctosigmoiditis. Patient usually takes mesalamine and famotidine Past Medical History: ulcerative colitis, hypertension, diabetes mellitus, dyslipidemia Past Surgical History: Bilateral fallopian tube dissection Social History: NO smoking, drinking ETOH and use of illegal drugs. Family History: Noncontributory Review of Systems: Constitutional: no fever, chill, weight loss HEENT: no eye pain, no hearing loss, no oral lesion, no scleral icterus Heart: no chest pain, no chest pressure Lung: no cough, no dyspnea with exertion Abdomen: see HPI Physical exam: General: NAD, AAOX3 Chest: lung barber clear to auscultation Heart: RRR, no murmur Abdomen:+ epigastric and left upper quadrant tenderness to palpation, +BS Labs: Labs Test 02/04/25 14:51 02/04/25 11:54 02/04/25 02:30 02/03/25 23:41 Range/Units Hemoglobin A1c 6.3 H <5.7 % A1C Lactic Acid Level 1.7 0.4-2.0 mmol/L Troponin I High Sensitivity 28 </=34 ng/L Sodium Level 142 136-145 mmol/L Potassium Level 4.4 3.5-5.1 mmol/L Chloride Level 103 98-107 mmol/L Carbon Dioxide Level 28 20-31 mmol/L Anion Gap 11 5-15 Blood Urea Nitrogen 24 H 9-23 mg/dL Creatinine 0.86 0.550-1.02 mg/dL Glomerular Filtration Rate Calc 69 >90 mL/min BUN/Creatinine Ratio 27.9 H 10.0-20.0 Serum Glucose 150 H 74-106 mg/dL Calcium Level 8.8 8.7-10.4 mg/dL Total Bilirubin 0.5 0.2-1.0 mg/dL Aspartate Amino Transferase (AST) 22 13-40 U/L Alanine Aminotransferase (ALT) 16 7-40 U/L Alkaline Phosphatase 103 46-116 U/L Total Protein 6.7 5.7-8.2 g/dL Albumin 4.1 3.2-4.8 g/dL Lipase 24 12-53 U/L White Blood Count 10.4 4.4-10.8 10^3/uL Red Blood Count 4.50 4.0-5.20 10^6/uL Hemoglobin 14.3 12.2-16.2 g/dL Hematocrit 41.7 36.0-46.0 % Mean Corpuscular Volume 92.8 80.0-100.0 fL Mean Corpuscular Hemoglobin 31.7 28.0-32.0 pg Mean Corpuscular Hemoglobin Concent 34.2 32.0-36.0 g/dL Red Cell Distribution Width 13.7 11.8-14.3 % Platelet Count 172 140-450 10^3/uL Mean Platelet Volume 9.5 6.9-10.8 fL Neutrophils (%) (Auto) 37.0-80.0 % Lymphocytes (%) (Auto) 10.0-50.0 % Monocytes (%) (Auto) 0.0-12.0 % Basophils (%) (Auto) 0.0-2.0 % Neutrophils # (Auto) 1.6-8.6 10 ^3/uL Lymphocytes # (Auto) 0.4-5.4 10 ^3/uL Monocytes # (Auto) 0-1.3 10 ^3/uL Differential Total Cells Counted 100.0 100 Neutrophils % (Manual) 93 H 37.0-80.0 Band Neutrophils % (Manual) 4 Lymphocytes % (Manual) 2 L 10.0-50.0 Monocytes % (Manual) 1 0-12 Eosinophils % (Manual) 0 0-7 Basophils % (Manual) 0 0.0-2.0 Metamyelocytes % (manual) 0 Myelocytes % (Manual) 0 Promyelocytes % (Manual) 0 Blast Cells % (Manual) 0 Reactive Lymphocytes 0 Platelet Estimate Adequate Test 02/03/25 23:03 Range/Units POC Glucose 151 H 70-106 mg/dl Imaging: CT abdomen with pelvis Results pending Assessment: Abdominal pain Nausea and vomiting Ulcerative colitis History of GERD Plan: Discussed with Dr. Lieberman Continue mesalamine and prednisone Supportive treatment recommended Full liquid diet advance to soft as tolerated We will continue to monitor patient Plan discussed with patient and family at bedside Thank you for this consult Date of Service: Feb 05, 2025 Billing Provider: MISAEL LUCERO Common Visit Codes: CONSULT ONLY Consultation Codes: [id number] CONSULT <60MIN MISAEL LUCERO Feb 05, 2025 14:29
[2025-02-05] MEDS: LOSARTAN POTASSIUM 50 MG TAB PO ONE (14:30)
--- NOTE | 2025-02-05 14:44 | DVH ---
Exam: CT CT AB PEL WO CON-NO ORAL OR IV History: Abdominal pain Comparison Study: CT CT AB PEL WO CON-NO ORAL OR IV on DOS: 06/19/23 Technique: Multidetector spiral CT of the abdomen was performed from lung bases to pubic symphysis. I maging was performed without IV contrast. Axial, coronal and sagittal multiplanar reformats were obta ined from the axial data set by the technologist. Radiation Dose : 1. Abdomen/Pelvis: CTDIvol 10.72 mGy, DLP 593.41 mGy*cm. Findings: Evaluation of solid organs is limited due to lack of intravenous contrast use. Lung Bases: Dependent atelectasis. Liver: The liver is normal in size. No focal lesions. Gallbladder and Biliary Tree: Unremarkable Spleen: Unremarkable Pancreas: The pancreas is grossly normal in appearance. Adrenal Glands: Unremarkable Kidneys: Kidneys are grossly normal without calculi or hydronephrosis. Bladder: Grossly unremarkable for degree of distention. Bowel: The stomach is grossly normal in appearance. Moderate colonic stool. Mild colonic bowel wall thickening. The appendix is not visualized; however, no secondary findings of acute appendicitis iden tified. Ascites: Absent Lymphadenopathy: No mesenteric, retroperitoneal or periportal lymphadenopathy. Abdominal Wall and Mesentery: Unremarkable. Vasculature: The visualized abdominal aorta is normal in size and caliber. Evaluation of abdominal a nd pelvic vessels is limited due to lack of intravenous contrast. Pelvic Organs: Unremarkable Musculoskeletal: No aggressive focal bony lesions, acute fractures or dislocation. IMPRESSION: Mild colonic bowel wall thickening may be due to underdistention or mild colitis. Moderate colonic stool. Radiation optimization: All CT scans at this facility use at least one of these dose optimization latasha hniques: automated exposure control mA and/or kV adjustment per patient size (includes targeted exam s where dose is matched to clinical indication) or iterative reconstruction.
[2025-02-05] MEDS ORDERED: DEXTROSE (50%) 50ML SYRG IV PRN (16:45)
[2025-02-05] MEDS: ACCU-CHEK COMFORT CURVE STRIP VI SCH (17:02)
[2025-02-05] MEDS: InsuLIN REG 1unit/0.01ml Soln (100units/ml) SC SCH (17:16)
[2025-02-05] MEDS: METOPROLOL TARTRATE 50 MG TAB PO ONE (17:17)
[2025-02-05] MEDS: METOPROLOL TARTRATE 50 MG TAB PO SCH (21:03)
[2025-02-06] VITALS (8 sets, daily range): BP systolic 108–177; BP diastolic 57–83; PULSE 44–103; RESP 15–20; TEMP 97.4–99.1; O2SAT 94–99
--- NOTE | 2025-02-06 09:16 | DVHPN2 ---
Reviewed: Care Plan, H&P, Labs, Medications, Previous Orders, Radiology Changes from previous H/P or p: No Changes Eyes: No Pain, No Vision change, No Conjunctivae inflammation, No Eyelid inflammation, No Other, No Redness ENT: No Ear pain, No Ear discharge, No Nose pain, No Nose discharge, No Nose congestion, No Mouth pain, No Mouth swelling, No Throat pain, No Throat swelling, No Other Cardiovascular: No Chest Pain, No Palpitations, No Orthopnea, No Paroxysmal Noc. Dyspnea, No Edema, No Lt Headedness, No Other Respiratory: No Cough, No Dry, No Shortness of breath, No SOB with excertion, No Wheezing, No Hemoptysis, No Pleuritic Pain, No Sputum, No Other Gastrointestinal: Nausea, Vomiting, Abdominal Pain Genitourinary: No Dysuria, No Frequency, No Incontinence, No Hematuria, No Retention, No Other Musculoskeletal: No other, No neck pain, No shoulder pain, No arm pain, No back pain, No hand pain, No leg pain, No foot pain Skin: No Rash, No Lesions, No Jaundice, No Bruising, No Other Objective Vitals Vital Signs Date Time Temp Pulse Resp B/P (MAP) Pulse Ox O2 Delivery O2 Flow Rate FiO2 02/06/25 05:00 97.5 53 20 108/57 (74) 98 97.5 02/05/25 19:40 Room Air* 0 21 Intake/Output Intake and Output 02/06/25 07:00 Intake Total 1650 ml Balance 1650 ml Intake Oral 1500 ml IV Total 150 ml # Voids 6 Medications Current Medications Medications Dose Ordered Sig/Larry Route Start Time Stop Time Status Last Admin Dose Admin Nitroglycerin 0.4 mg Q5MINP PRN SL 02/04/25 11:15 Morphine Sulfate 2 mg Q30M PRN IV 02/04/25 11:15 Sodium Chloride 1,000 ml @ 100 mls/hr Q10H IV 02/04/25 11:15 02/05/25 21:08 100 MLS/HR Prednisone 40 mg DAILY PO 02/05/25 10:00 02/05/25 08:51 40 MG Famotidine 40 mg DAILY PO 02/05/25 10:00 02/05/25 08:52 40 MG Ondansetron HCl 4 mg Q4HPRN PRN IV 02/04/25 11:30 Ceftriaxone Sodium 50 ml @ 100 mls/hr DAILY@09 IV 02/05/25 09:00 02/05/25 08:51 100 MLS/HR Metronidazole 100 ml @ 100 mls/hr Q8HR IV 02/04/25 14:00 02/06/25 05:27 100 MLS/HR Atorvastatin Calcium 20 mg HS PO 02/04/25 22:00 02/05/25 20:59 20 MG Mesalamine 800 mg TID PO 02/04/25 22:00 02/06/25 05:26 800 MG Losartan Potassium 50 mg DAILY PO 02/06/25 10:00 Diagnostic Test (Pha) 1 strip ACHS 02/05/25 17:00 02/06/25 05:34 1 STRIP Insulin Human Regular ACHS SC 02/05/25 17:00 02/05/25 21:01 3 UNITS Dextrose 50 ml UD PRN IV 02/05/25 16:45 Metoprolol Tartrate 50 mg BID PO 02/05/25 22:00 02/05/25 21:03 50 MG Laboratory Results Laboratory Tests 02/03/25 23:41 02/04/25 02:30 Labs and/or images reviewed: Labs reviewed by me, Image(s) reviewed by me Assessment/Plan Assessment/Plan Acute intractable abdominal pain with nausea: Ulcerative colitis versus acute colitis Rocephin Flagyl mesalamine prednisone, consult for GI Dr. Felisa Lieberman Sepsis due to acute ulcerative colitis Lactic acidosis Non ST-elevation [place] type 2 secondary to dehydration Diabetes A1c 6.4 Hypotension History of GERD Spoke to patient's daughter Dilia on the phone Plan discussed with: Patient My Orders Orders - VINITA LUCERO MD Procedure Category Date Status Time Ct Ab Pel Wo Con-No CT 02/05/25 Resulted Oral Or Iv 12:32 * Gi [facility] CONS 02/05/25 Transmitted 12:36 Losartan Tablet PHA 02/06/25 In Process (Cozaar Tablet) 10:00 Glucose Blood PHA 02/05/25 In Process (Accu-Chek Comfort 17:00 Insulin R (Human) PHA 02/05/25 In Process (Insulin R) 17:00 Dextrose 50% Syringe PHA 02/05/25 In Process 16:45 Metoprolol Tartrate PHA 02/05/25 In Process Tablet (Lopressor Ta 22:00 Date of Service: Feb 06, 2025 Billing Provider: VINITA LUCERO MD Common Visit Codes: [id number] INP/OBS CARE(HIGH) VINITA LUCERO MD Feb 06, 2025 09:16
[2025-02-06] MEDS: LOSARTAN POTASSIUM 50 MG TAB PO SCH (11:32)
--- NOTE | 2025-02-06 12:01 | DVHINCON2 ---
Date Seen: Feb 06, 2025 Referring Physician MD Rodrigo Reason for Consultation Elevated troponin History of Present Illness This is a Lithuanian-speaking 79-year-old female patient who presents to the emergency room with chief complaint of nausea and vomiting for one day prior to emergency room arrival. The patient reports that she vomited so many times at home that she could not even keep water down which prompted her to come to the emergency room. Cardiology has been consulted at this time for elevated troponin level. No twelve lead electrocardiogram was performed in the emergency room. A twelve lead electrocardiogram was ordered at time of assessment and reveals sinus bradycardia without any pauses or atrioventricular blocks.Initial troponin level of 14ng/L with slight up trend and peak level of 47ng/L, with downtrend thereafter. The patient denies any cardiac symptoms such as chest pain, palpitations, or shortness of breath. Significant past medical history includes hypertension, dyslipidemia, ulcerative colitis, and type 2 diabetes mellitus. Past Medical History Past medical history reviewed. No other significant than mentioned above. Past Surgical History She denies any previous surgical interventions Family History: Cerebrovascular accident (CVA) G8 FATHER Diabetes mellitus G8 FATHER Hypertension G8 FATHER Family History Family history reviewed. Social History Denies the use of tobacco, alcohol or illicit drugs. Allergies: Coded Allergies: Lisinopril (Verified Allergy, Unknown, 04/28/22) Home Meds Reported Medications Mesalamine (DELZICOL) 400 Mg Cap, 800 MG PO, CAP 02/04/25 Losartan Potassium (Losartan Potassium) 50 Mg Tab, 1 TAB PO BID 02/04/25 Atorvastatin Calcium (ATORVASTATIN CALCIUM) 10 Mg Tab, 1 TAB PO DAILY 02/04/25 Metformin Hydrochloride (Metformin Hcl) 1,000 Mg Tab, 1 TAB PO BID, #60 TAB 5 Refills 06/20/23 Home Meds Home medications reviewed. Current Medications Current Medications Medications (Trade) Dose Ordered Sig/Larry Route PRN Reason Start Time Stop Time Status Last Admin Losartan Potassium (Cozaar Tablet) 50 mg DAILY PO 02/06/25 10:00 02/06/25 11:32 Diagnostic Test (Pha) (Accu-Chek Comfort Curve T) 1 strip ACHS 02/05/25 17:00 02/06/25 11:33 Insulin Human Regular (InsuLIN R) ACHS SC 02/05/25 17:00 02/05/25 21:01 Dextrose 50 ml UD PRN IV Blood Sugar LESS THAN 60 02/05/25 16:45 Metoprolol Tartrate (Lopressor Tablet) 50 mg BID PO 02/05/25 22:00 02/05/25 21:03 Review of Systems Constitutional: No symptom reported Ears, Nose, & Throat: No symptom reported Eyes: No symptom reported Neurological: No symptoms reported Pulmonary/Respiratory: No symptoms reported Cardiovascular: No symptom reported Gastrointestinal: Nausea and vomiting Genitourinary: No symptom reported Musculoskeletal: No symptom reported Skin: No symptom reported Psychiatric: No symptom reported Endocrine: No symptom reported Hematologic/Lymphatic: No symptom reported Vital Signs Vital Signs Date Time Temp Pulse Resp B/P (MAP) Pulse Ox O2 Delivery O2 Flow Rate FiO2 02/06/25 11:32 159/66 02/06/25 10:00 56 02/06/25 09:00 98.3 19 96 98.3 02/05/25 19:40 Room Air* 0 21 Physical Exam General Appearance: Cooperative. Well-developed. Well-nourished. No acute distress. Pulmonary/Respiratory: Clear, bilateral breaths sounds. Cardiovascular/Chest: Regular rate and rhythm. Peripheral Pulses: 2+ Radial (R). 2+ Radial (L). 2+ Pedal (R). 2+ Pedal (L) Abdominal Exam: Normal bowel sounds. Ankle Exam: Negative ankle edema Lower extremities: Negative lower extremity edema Neuro/Mental Status: A/OX4, coherent. Thoughts/Psych: Normal thought pattern. Appropriate mood and affect. Good judgment and insight. Appearance: No acute distress. Skin Exam: Normal inspection. Normal color. Warm and dry. Labs/Diagnostic Data Labs Test 02/06/25 11:20 02/04/25 14:51 02/04/25 11:54 02/04/25 02:30 Range/Units POC Glucose 115 H 70-106 mg/dl Hemoglobin A1c 6.3 H <5.7 % A1C Lactic Acid Level 1.7 0.4-2.0 mmol/L Troponin I High Sensitivity 28 </=34 ng/L Sodium Level 142 136-145 mmol/L Potassium Level 4.4 3.5-5.1 mmol/L Chloride Level 103 98-107 mmol/L Carbon Dioxide Level 28 20-31 mmol/L Anion Gap 11 5-15 Blood Urea Nitrogen 24 H 9-23 mg/dL Creatinine 0.86 0.550-1.02 mg/dL Glomerular Filtration Rate Calc 69 >90 mL/min BUN/Creatinine Ratio 27.9 H 10.0-20.0 Serum Glucose 150 H 74-106 mg/dL Calcium Level 8.8 8.7-10.4 mg/dL Total Bilirubin 0.5 0.2-1.0 mg/dL Aspartate Amino Transferase (AST) 22 13-40 U/L Alanine Aminotransferase (ALT) 16 7-40 U/L Alkaline Phosphatase 103 46-116 U/L Total Protein 6.7 5.7-8.2 g/dL Albumin 4.1 3.2-4.8 g/dL Lipase 24 12-53 U/L Test 02/03/25 23:41 Range/Units White Blood Count 10.4 4.4-10.8 10^3/uL Red Blood Count 4.50 4.0-5.20 10^6/uL Hemoglobin 14.3 12.2-16.2 g/dL Hematocrit 41.7 36.0-46.0 % Mean Corpuscular Volume 92.8 80.0-100.0 fL Mean Corpuscular Hemoglobin 31.7 28.0-32.0 pg Mean Corpuscular Hemoglobin Concent 34.2 32.0-36.0 g/dL Red Cell Distribution Width 13.7 11.8-14.3 % Platelet Count 172 140-450 10^3/uL Mean Platelet Volume 9.5 6.9-10.8 fL Neutrophils (%) (Auto) 37.0-80.0 % Lymphocytes (%) (Auto) 10.0-50.0 % Monocytes (%) (Auto) 0.0-12.0 % Basophils (%) (Auto) 0.0-2.0 % Neutrophils # (Auto) 1.6-8.6 10 ^3/uL Lymphocytes # (Auto) 0.4-5.4 10 ^3/uL Monocytes # (Auto) 0-1.3 10 ^3/uL Differential Total Cells Counted 100.0 100 Neutrophils % (Manual) 93 H 37.0-80.0 Band Neutrophils % (Manual) 4 Lymphocytes % (Manual) 2 L 10.0-50.0 Monocytes % (Manual) 1 0-12 Eosinophils % (Manual) 0 0-7 Basophils % (Manual) 0 0.0-2.0 Metamyelocytes % (manual) 0 Myelocytes % (Manual) 0 Promyelocytes % (Manual) 0 Blast Cells % (Manual) 0 Reactive Lymphocytes 0 Platelet Estimate Adequate Assessment Sepsis Colitis NSTEMI, likely type II secondary to above Rule out structural heart disease Hypertension Dyslipidemia Type 2 diabetes mellitus History of ulcerative colitis Plan/Recommendation We will continue with the following plan/recommendations (): We will obtain a transthoracic echocardiogram to evaluate cardiac function. Mildly elevated troponin level likely in the setting of sepsis and colitis. The patient denies any cardiac symptoms. In the setting of an unremarkable transthoracic echocardiogram, there is no further inpatient cardiac workup indicated at this time. Thank you for allowing us to care for this patient. Please call with any questions or concerns. Critical care time spent: 44 minutes This medical document was created using an electronic medical record system with voice recognition software and computerized dictation system. Although this document has been carefully reviewed, there might still be some phonetic and typographical errors. Occasional wrong-word or ``sound-alike substitutions may have occurred due to the inherent limitations of voice recognition software. These areas are purely typographical due to imperfections of the software programs and do not reflect any compromise in the patient's medical care. Please read the chart carefully and recognize, using context, where these substitutions have occurred. Plan discussed with: Patient NYHA Physical activity limitations: NA Date of Service: Feb 06, 2025 Billing Provider: LELA DAMICO Cardiology Common Codes: [id number] INP/OBS CARE (High) Cardiology Consultation Codes: [id number] CONSULT <45MIN LELA DAMICO Feb 06, 2025 12:01
--- NOTE | 2025-02-06 12:46 | DVHPN2 ---
Progress Note Date Seen: Feb 06, 2025 Resident Creating Document: MICHAEL YORK RESIDENT Medical Necessity Reason Pt with a Central, PICC or Fol: No Subjective Review of Systems patient seen and examined at bedside no BM today, last BM 02/03/25 slightly bloody denies any nausea or vomiting Objective vital signs Vital Sign Date Time Temp Pulse Resp B/P (MAP) Pulse Ox O2 Delivery O2 Flow Rate FiO2 02/06/25 11:32 159/66 02/06/25 10:00 56 02/06/25 09:00 98.3 19 96 98.3 02/05/25 19:40 Room Air* 0 21 Total Intake and Output 02/05/25 02/05/25 02/06/25 15:00 23:00 07:00 Intake Total 50 ml 1100 ml 500 ml Balance 50 ml 1100 ml 500 ml medications Current Medications Medications Dose Ordered Sig/Larry Route Start Time Stop Time Status Last Admin Dose Admin Nitroglycerin 0.4 mg Q5MINP PRN SL 02/04/25 11:15 Morphine Sulfate 2 mg Q30M PRN IV 02/04/25 11:15 Sodium Chloride 1,000 ml @ 100 mls/hr Q10H IV 02/04/25 11:15 02/05/25 21:08 100 MLS/HR Prednisone 40 mg DAILY PO 02/05/25 10:00 02/06/25 11:31 40 MG Famotidine 40 mg DAILY PO 02/05/25 10:00 02/06/25 11:32 40 MG Ondansetron HCl 4 mg Q4HPRN PRN IV 02/04/25 11:30 Ceftriaxone Sodium 50 ml @ 100 mls/hr DAILY@09 IV 02/05/25 09:00 02/06/25 11:49 100 MLS/HR Metronidazole 100 ml @ 100 mls/hr Q8HR IV 02/04/25 14:00 02/06/25 05:27 100 MLS/HR Atorvastatin Calcium 20 mg HS PO 02/04/25 22:00 02/05/25 20:59 20 MG Mesalamine 800 mg TID PO 02/04/25 22:00 02/06/25 05:26 800 MG Losartan Potassium 50 mg DAILY PO 02/06/25 10:00 02/06/25 11:32 50 MG Diagnostic Test (Pha) 1 strip ACHS 02/05/25 17:00 02/06/25 11:33 1 STRIP Insulin Human Regular ACHS SC 02/05/25 17:00 02/05/25 21:01 3 UNITS Dextrose 50 ml UD PRN IV 02/05/25 16:45 Metoprolol Tartrate 50 mg BID PO 02/05/25 22:00 02/05/25 21:03 50 MG Examination General: NAD, AAOX3 Chest: lung barber clear to auscultation Heart: RRR, no murmur Abdomen:+ epigastric and left upper quadrant tenderness to palpation, +BS, soft, nondistended laboratory and microbiology Laboratory Tests 02/04/25 02:30 02/03/25 23:41 Test 02/04/25 02:30 Range/Units Serum Glucose 150 H 74-106 mg/dL Labs and/or images reviewed: Labs reviewed by me, Image(s) reviewed by me Problem List/Assessment/Plan Problem List/Assessment/Plan Abdominal pain Nausea and vomiting Ulcerative colitis exacerbation History of GERD Hyperthyroidism? Plan: Continue mesalamine and prednisone Supportive treatment recommended Full liquid diet advance to soft as tolerated colace 100mg bid ordered T3, FT4 We will continue to monitor patient; last colonoscopy 2023 Cleared for DC from GI stand point once patient has a BM Follow up with GI in outpatient Thank you so much for the opportunity to consult on your patient. GI team will follow the patient. In case of any questions or concerns please feel free to reach out. Plan discussed with Dr. Lieberman Plan discussed with: Patient, Other (RN) MICHAEL YORK RESIDENT Feb 06, 2025 12:46
[2025-02-06 13:28] LABS: Hematocrit 37.6 % (36.0-46.0); Hemoglobin 13.0 g/dL (12.2-16.2); Mean Corpuscular Hemoglobin 31.7 pg (28.0-32.0); Mean Corpuscular Volume 91.6 fL (80.0-100.0); Nucleated Red Blood Cells % 0.1 %
[2025-02-06 13:44] LABS: Potassium 4.0 mmol/L (3.5-5.1); Sodium 144 mmol/L (136-145)
[2025-02-06 13:45] LABS: Anion Gap 8 (5-15); Calcium 8.8 mg/dL (8.7-10.4); Carbon Dioxide 28 mmol/L (20-31)
[2025-02-06 13:50] LABS: BUN/Creatinine Ratio 10.3 (10.0-20.0); Blood Urea Nitrogen 9 mg/dL (9-23); Triglycerides 61 mg/dL (< 150)
[2025-02-06 13:51] LABS: Magnesium 2.2 mg/dL (1.6-2.6)
[2025-02-06 13:52] LABS: Chloride 108 mmol/L (98-107); Cholesterol 130 mg/dL (< 200); Glucose 120 mg/dL (74-106); HDL Cholesterol 55 mg/dL (40-59)
[2025-02-06 16:32] LABS: Free T4 (Free Thyroxine) 1.43 ng/dL (0.89-1.76)
[2025-02-06] MEDS: DOCUSATE SOD 100 MG CAP PO SCH (21:27)
[2025-02-07] VITALS (7 sets, daily range): BP systolic 126–155; BP diastolic 56–84; PULSE 39–66; RESP 16–18; TEMP 97.3–99.1; O2SAT 97–99
--- NOTE | 2025-02-07 08:10 | ECG ---
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
--- NOTE | 2025-02-07 09:40 | DVHSR ---
APPROVED REPORT EXAM: LIMITED Two-dimensional and M-mode echocardiogram with Doppler and color Doppler. Blood Pressure: 147/71 mmHg INDICATION Evaluate Cardiac Function RISK FACTORS Height: 5', Weight: 149 DIMENSIONS LVDd5.5 (3.8-5.7cm)LA (2D)4.8 (1.9-4.0cm)Aortic Root3.1 (2.0-3.7cm) LVDs4.2 (2.5-4.0cm)LA (MM) (1.9-4.0cm)Aortic Cusp Exc1.8 (1.5-2.0cm) EF (%) 45.0 (55-70%)Rt. Atrium4.3 (1.9-4.0cm)Asc. Aorta cm IVSd1.1 (0.7-1.1cm)RV (D) (1.8-2.4cm) PWd1.0 (0.7-1.1cm) Mitral Valve MitralMitral Stenosis E wave0.90m/sMV Mean GR.mmHg A wave0.60m/sMV Peak GR.mmHg E/A ratio1.52D MVAcm2 Aortic Valve Aortic ValveAortic Stenosis V10.60m/Umu Mean GR.4mmHg V21.40m/Umu Peak GR.9mmHg LVOT Diameter2.2 (1.8-2.4cm)Doppler AVA1.63cm2 Pulmonic Valve V20.50m/s Tricuspid Valve TR Velocity2.30m/s [id number] Other Information Quality : Technically LimitedRhythm : Technically limited study due to body habitus. Conclusion Sinus rhythm. Difficult acoustic windows. Biatrial enlargement. Mild aortic root enlargement. Mild aortic sclerosis. Mild calcification of the sinuses of Valsalva. Left ventricular function is borderline at 45 to 50%. Mild global hypokinesis. Normal right ventric ular function. Dopplers unremarkable. Mild TR. No pericardial effusion masses or vegetations discernible.
--- NOTE | 2025-02-07 12:42 | DVHPN2 ---
Progress Note Date Seen: Feb 07, 2025 Resident Creating Document: MICHAEL YORK RESIDENT Medical Necessity Reason Pt with a Central, PICC or Fol: No Subjective Review of Systems Patient seen and examined at bedside Notes some abdominal tenderness One bowel movement today, nonbloody Grade appetite, finished full tray of meal. Objective vital signs Vital Sign Date Time Temp Pulse Resp B/P (MAP) Pulse Ox O2 Delivery O2 Flow Rate FiO2 02/07/25 09:00 97.3 45 16 154/84 (107) 98 97.3 02/07/25 08:00 Room Air* 0 21 Total Intake and Output 02/06/25 02/06/25 02/07/25 15:00 23:00 07:00 Intake Total 250 ml 400 ml 2000 ml Balance 250 ml 400 ml 2000 ml medications Current Medications Medications Dose Ordered Sig/Larry Route Start Time Stop Time Status Last Admin Dose Admin Nitroglycerin 0.4 mg Q5MINP PRN SL 02/04/25 11:15 Morphine Sulfate 2 mg Q30M PRN IV 02/04/25 11:15 Sodium Chloride 1,000 ml @ 100 mls/hr Q10H IV 02/04/25 11:15 02/05/25 21:08 100 MLS/HR Prednisone 40 mg DAILY PO 02/05/25 10:00 02/07/25 12:00 40 MG Famotidine 40 mg DAILY PO 02/05/25 10:00 02/07/25 08:47 40 MG Ondansetron HCl 4 mg Q4HPRN PRN IV 02/04/25 11:30 Ceftriaxone Sodium 50 ml @ 100 mls/hr DAILY@09 IV 02/05/25 09:00 02/07/25 08:46 100 MLS/HR Metronidazole 100 ml @ 100 mls/hr Q8HR IV 02/04/25 14:00 02/07/25 05:09 100 MLS/HR Atorvastatin Calcium 20 mg HS PO 02/04/25 22:00 02/06/25 21:27 20 MG Mesalamine 800 mg TID PO 02/04/25 22:00 02/07/25 05:09 800 MG Losartan Potassium 50 mg DAILY PO 02/06/25 10:00 02/07/25 08:50 50 MG Diagnostic Test (Pha) 1 strip ACHS 02/05/25 17:00 02/07/25 11:42 1 STRIP Insulin Human Regular ACHS SC 02/05/25 17:00 02/07/25 12:03 2 UNITS Dextrose 50 ml UD PRN IV 02/05/25 16:45 Metoprolol Tartrate 50 mg BID PO 02/05/25 22:00 02/07/25 08:48 50 MG Docusate Sodium 100 mg BID PO 02/06/25 22:00 02/07/25 08:53 100 MG Hydralazine HCl 10 mg Q6HP PRN IV 02/06/25 17:45 Examination General: NAD, AAOX3 Chest: lung barber clear to auscultation Heart: RRR, no murmur Abdomen:+ epigastric and left upper quadrant tenderness to palpation, +BS, soft, nondistended laboratory and microbiology Laboratory Tests 02/06/25 13:15 Test 02/06/25 13:15 Range/Units Serum Glucose 120 H 74-106 mg/dL Labs and/or images reviewed: Labs reviewed by me, Image(s) reviewed by me Problem List/Assessment/Plan Problem List/Assessment/Plan Abdominal pain Nausea and vomiting Ulcerative colitis exacerbation History of GERD Hyperthyroidism? Plan: Continue mesalamine and prednisone Supportive treatment recommended Full liquid diet advance to soft as tolerated colace 100mg bid ordered T3, FT4 We will continue to monitor patient; last colonoscopy 2023 Cleared for DC from GI stand point Follow up with GI in outpatient Thank you so much for the opportunity to consult on your patient. GI team will follow the patient. In case of any questions or concerns please feel free to reach out. Plan discussed with Dr. Lieberman Plan discussed with: Patient, Other (RN) MICHAEL YORK RESIDENT Feb 07, 2025 12:42
--- NOTE | 2025-02-07 13:15 | DVHPN2 ---
Consult Progress Note Subjective Other Systems: Patient in sinus bradycardia on life trainer Objective vital signs Vital Sign Date Time Temp Pulse Resp B/P (MAP) Pulse Ox O2 Delivery O2 Flow Rate FiO2 02/07/25 09:00 97.3 45 16 154/84 (107) 98 97.3 02/07/25 08:00 Room Air* 0 21 Total Intake and Output 02/06/25 02/06/25 02/07/25 15:00 23:00 07:00 Intake Total 250 ml 400 ml 2000 ml Balance 250 ml 400 ml 2000 ml medications Current Medications Medications Dose Ordered Sig/Larry Route Start Time Stop Time Status Last Admin Dose Admin Nitroglycerin 0.4 mg Q5MINP PRN SL 02/04/25 11:15 Morphine Sulfate 2 mg Q30M PRN IV 02/04/25 11:15 Sodium Chloride 1,000 ml @ 100 mls/hr Q10H IV 02/04/25 11:15 02/05/25 21:08 100 MLS/HR Prednisone 40 mg DAILY PO 02/05/25 10:00 02/07/25 12:00 40 MG Famotidine 40 mg DAILY PO 02/05/25 10:00 02/07/25 08:47 40 MG Ondansetron HCl 4 mg Q4HPRN PRN IV 02/04/25 11:30 Ceftriaxone Sodium 50 ml @ 100 mls/hr DAILY@09 IV 02/05/25 09:00 02/07/25 08:46 100 MLS/HR Metronidazole 100 ml @ 100 mls/hr Q8HR IV 02/04/25 14:00 02/07/25 05:09 100 MLS/HR Atorvastatin Calcium 20 mg HS PO 02/04/25 22:00 02/06/25 21:27 20 MG Mesalamine 800 mg TID PO 02/04/25 22:00 02/07/25 05:09 800 MG Losartan Potassium 50 mg DAILY PO 02/06/25 10:00 02/07/25 08:50 50 MG Diagnostic Test (Pha) 1 strip ACHS 02/05/25 17:00 02/07/25 11:42 1 STRIP Insulin Human Regular ACHS SC 02/05/25 17:00 02/07/25 12:03 2 UNITS Dextrose 50 ml UD PRN IV 02/05/25 16:45 Metoprolol Tartrate 50 mg BID PO 02/05/25 22:00 02/07/25 08:48 50 MG Docusate Sodium 100 mg BID PO 02/06/25 22:00 02/07/25 08:53 100 MG Hydralazine HCl 10 mg Q6HP PRN IV 02/06/25 17:45 Examination: GENERAL:Normal, LUNGS:Normal, CVS:Normal, NEURO:Normal laboratory and microbiology Laboratory Tests 02/06/25 13:15 Test 02/06/25 13:15 Range/Units Serum Glucose 120 H 74-106 mg/dL Problem List/Assessment/Plan Problem List/Assessment/Plan NSTEMI, rule out coronary ischemia Sepsis Colitis Chronic HFmrEF, NYHA class II, newly diagnosed Hypertension Dyslipidemia Type 2 diabetes mellitus History of ulcerative colitis Plan/Recommendations (): Transthoracic echocardiogram reveals an EF of 45-50% with mild global hypokinesis. During initial consultation, the patient denied any cardiac symptoms. Today during assessment, the patient's daughter who was at bedside states that the patient has been complaining of fatigue for the last three weeks. Given mildly reduced EF, elevated troponin level, and symptoms, we will order nuclear stress test for patient to rule out any coronary ischemia. Plan discussed with the patient and her daughter at bedside. Patient is agreeable. We will schedule the patient at soonest availability. In the meantime, initiate guideline directed medical therapy for CHF as tolerated. Reduce beta-carolyn dose given bradycardia. Continue with close cardiac surveillance. Thank you for allowing us to care for this patient. Please call with any questions or concerns. This medical document was created using an electronic medical record system with voice recognition software and computerized dictation system. Although this document has been carefully reviewed, there might still be some phonetic and typographical errors. Occasional wrong-word or ``sound-alike substitutions may have occurred due to the inherent limitations of voice recognition software. These areas are purely typographical due to imperfections of the software programs and do not reflect any compromise in the patient's medical care. Please read the chart carefully and recognize, using context, where these substitutions have occurred. Plan discussed with: Patient Date of Service: Feb 07, 2025 Billing Provider: LELA DAMICO Common Visit Codes: [id number] INP/OBS CARE(HIGH) LELA DAMICO Feb 07, 2025 13:15
--- NOTE | 2025-02-07 13:23 | DVHPN2 ---
Reviewed: Care Plan, H&P, Labs, Medications, Previous Orders, Radiology Changes from previous H/P or p: No Changes Eyes: No Pain, No Vision change, No Conjunctivae inflammation, No Eyelid inflammation, No Other, No Redness ENT: No Ear pain, No Ear discharge, No Nose pain, No Nose discharge, No Nose congestion, No Mouth pain, No Mouth swelling, No Throat pain, No Throat swelling, No Other Cardiovascular: No Chest Pain, No Palpitations, No Orthopnea, No Paroxysmal Noc. Dyspnea, No Edema, No Lt Headedness, No Other Respiratory: No Cough, No Dry, No Shortness of breath, No SOB with excertion, No Wheezing, No Hemoptysis, No Pleuritic Pain, No Sputum, No Other Gastrointestinal: Nausea, Vomiting, Abdominal Pain Genitourinary: No Dysuria, No Frequency, No Incontinence, No Hematuria, No Retention, No Other Musculoskeletal: No other, No neck pain, No shoulder pain, No arm pain, No back pain, No hand pain, No leg pain, No foot pain Skin: No Rash, No Lesions, No Jaundice, No Bruising, No Other Objective Vitals Vital Signs Date Time Temp Pulse Resp B/P (MAP) Pulse Ox O2 Delivery O2 Flow Rate FiO2 02/07/25 09:00 97.3 45 16 154/84 (107) 98 97.3 02/07/25 08:00 Room Air* 0 21 Intake/Output Intake and Output 02/07/25 07:00 Intake Total 2650 ml Balance 2650 ml Intake Oral 2400 ml IV Total 250 ml # Voids 11 Medications Current Medications Medications Dose Ordered Sig/Larry Route Start Time Stop Time Status Last Admin Dose Admin Nitroglycerin 0.4 mg Q5MINP PRN SL 02/04/25 11:15 Morphine Sulfate 2 mg Q30M PRN IV 02/04/25 11:15 Sodium Chloride 1,000 ml @ 100 mls/hr Q10H IV 02/04/25 11:15 02/05/25 21:08 100 MLS/HR Prednisone 40 mg DAILY PO 02/05/25 10:00 02/07/25 12:00 40 MG Famotidine 40 mg DAILY PO 02/05/25 10:00 02/07/25 08:47 40 MG Ondansetron HCl 4 mg Q4HPRN PRN IV 02/04/25 11:30 Ceftriaxone Sodium 50 ml @ 100 mls/hr DAILY@09 IV 02/05/25 09:00 02/07/25 08:46 100 MLS/HR Metronidazole 100 ml @ 100 mls/hr Q8HR IV 02/04/25 14:00 02/07/25 05:09 100 MLS/HR Atorvastatin Calcium 20 mg HS PO 02/04/25 22:00 02/06/25 21:27 20 MG Mesalamine 800 mg TID PO 02/04/25 22:00 02/07/25 05:09 800 MG Losartan Potassium 50 mg DAILY PO 02/06/25 10:00 02/07/25 08:50 50 MG Diagnostic Test (Pha) 1 strip ACHS 02/05/25 17:00 02/07/25 11:42 1 STRIP Insulin Human Regular ACHS SC 02/05/25 17:00 02/07/25 12:03 2 UNITS Dextrose 50 ml UD PRN IV 02/05/25 16:45 Docusate Sodium 100 mg BID PO 02/06/25 22:00 02/07/25 08:53 100 MG Hydralazine HCl 10 mg Q6HP PRN IV 02/06/25 17:45 Metoprolol Succinate 25 mg DAILY PO 02/08/25 10:00 UNV Empaglifozin 10 mg DAILY PO 02/08/25 10:00 UNV Laboratory Results Laboratory Tests 02/06/25 13:15 Labs and/or images reviewed: Labs reviewed by me, Image(s) reviewed by me Assessment/Plan Assessment/Plan Acute intractable abdominal pain with nausea: Ulcerative colitis versus acute colitis Rocephin Flagyl mesalamine prednisone, consult for GI Dr. Felisa Lieberman Sepsis due to acute ulcerative colitis Lactic acidosis Non ST-elevation [place] type 2, cardiology consult appreciated, patient getting stress test Diabetes A1c 6.4 Hypertension History of GERD Spoke to patient's daughter Dilia on the phone Plan discussed with: Patient Date of Service: Feb 07, 2025 Billing Provider: VINITA LUCERO MD Common Visit Codes: [id number] INP/OBS CARE(HIGH) VINITA LUCERO MD Feb 07, 2025 13:23
[2025-02-07] MEDS: REGADENOSON 0.4 MG/5 ML SYRG IV ONE ×2 (14:08→14:09)
[2025-02-07] MEDS: hydrALAZINE HCL 20 MG/ML VL IV PRN (23:01)
[2025-02-08] VITALS (8 sets, daily range): BP systolic 134–174; BP diastolic 62–87; PULSE 52–97; RESP 15–19; TEMP 97.1–98.1; O2SAT 96–99
--- NOTE | 2025-02-08 08:30 | ECG ---
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
[2025-02-08] MEDS: METOPROLOL SUCCINATE XL 50 MG TAB PO SCH (08:38)
[2025-02-08] MEDS: EMPAGLIFLOZIN 10 MG TAB PO SCH (08:39)
--- NOTE | 2025-02-08 10:06 | DVHPN2 ---
Progress Note Date Seen: Feb 08, 2025 Resident Creating Document: MICHAEL YORK RESIDENT Medical Necessity Reason Pt with a Central, PICC or Fol: No Subjective Review of Systems Patient seen and examined at bedside Denies any nausea or vomiting Last bowel movement yesterday, nonbloody Completed exercise stress test yesterday, pending results Objective vital signs Vital Sign Date Time Temp Pulse Resp B/P (MAP) Pulse Ox O2 Delivery O2 Flow Rate FiO2 02/08/25 09:00 97.2 57 15 160/83 (108) 98 97.2 02/08/25 08:00 Room Air* 0 21 Total Intake and Output 02/07/25 02/07/25 02/08/25 15:00 23:00 07:00 Intake Total 50 ml 825 ml 1040 ml Output Total 3 ml Balance 50 ml 825 ml 1037 ml medications Current Medications Medications Dose Ordered Sig/Larry Route Start Time Stop Time Status Last Admin Dose Admin Nitroglycerin 0.4 mg Q5MINP PRN SL 02/04/25 11:15 Morphine Sulfate 2 mg Q30M PRN IV 02/04/25 11:15 Sodium Chloride 1,000 ml @ 100 mls/hr Q10H IV 02/04/25 11:15 02/05/25 21:08 100 MLS/HR Prednisone 40 mg DAILY PO 02/05/25 10:00 02/07/25 12:00 40 MG Famotidine 40 mg DAILY PO 02/05/25 10:00 02/08/25 08:39 40 MG Ondansetron HCl 4 mg Q4HPRN PRN IV 02/04/25 11:30 Ceftriaxone Sodium 50 ml @ 100 mls/hr DAILY@09 IV 02/05/25 09:00 02/08/25 08:39 100 MLS/HR Metronidazole 100 ml @ 100 mls/hr Q8HR IV 02/04/25 14:00 02/08/25 05:37 100 MLS/HR Atorvastatin Calcium 20 mg HS PO 02/04/25 22:00 02/07/25 22:45 20 MG Mesalamine 800 mg TID PO 02/04/25 22:00 02/08/25 05:38 800 MG Losartan Potassium 50 mg DAILY PO 02/06/25 10:00 02/08/25 08:39 50 MG Diagnostic Test (Pha) 1 strip ACHS 02/05/25 17:00 02/08/25 06:11 1 STRIP Insulin Human Regular ACHS SC 02/05/25 17:00 02/07/25 22:59 3 UNITS Dextrose 50 ml UD PRN IV 02/05/25 16:45 Docusate Sodium 100 mg BID PO 02/06/25 22:00 02/08/25 08:39 100 MG Hydralazine HCl 10 mg Q6HP PRN IV 02/06/25 17:45 02/07/25 23:01 10 MG Metoprolol Succinate 25 mg DAILY PO 02/08/25 10:00 02/08/25 08:38 25 MG Empaglifozin 10 mg DAILY PO 02/08/25 10:00 02/08/25 08:39 10 MG Examination General: NAD, AAOX3 Chest: lung barber clear to auscultation Heart: RRR, no murmur Abdomen:+ epigastric and left upper quadrant tenderness to palpation, +BS, soft, nondistended laboratory and microbiology Laboratory Tests 02/06/25 13:15 Test 02/06/25 13:15 Range/Units Serum Glucose 120 H 74-106 mg/dL Labs and/or images reviewed: Labs reviewed by me, Image(s) reviewed by me Problem List/Assessment/Plan Problem List/Assessment/Plan Abdominal pain Nausea and vomiting Ulcerative colitis exacerbation History of GERD Hyperthyroidism? Plan: Continue mesalamine and prednisone Supportive treatment recommended Full liquid diet advance to soft as tolerated colace 100mg bid ordered T3, FT4 We will continue to monitor patient; last colonoscopy 2023 Cleared for DC from GI stand point Please discharge on Medrol Dosepak with instructions to follow up with GI in the outpatient clinic Thank you so much for the opportunity to consult on your patient. GI team will follow the patient. In case of any questions or concerns please feel free to reach out. Plan discussed with Dr. Lieberman Plan discussed with: Patient, Other (RN) Dietary Evaluation Review Comments: Nutrition Recommendation: 1) Advance to [facility] 45gm + cardiac soft diet as medically feasible 2) Refer [employer] for diabetes education 3) Monitor PO intake, lab values, weight trend, and I/O Expected Outcomes/Goals: To meet >75% estimated needs GI symptoms to improve Fu 3-5 days MICHAEL YORK RESIDENT Feb 08, 2025 10:06
--- NOTE | 2025-02-08 10:08 | DVHPN2 ---
Reviewed: Care Plan, H&P, Labs, Medications, Previous Orders, Radiology Changes from previous H/P or p: No Changes Eyes: No Pain, No Vision change, No Conjunctivae inflammation, No Eyelid inflammation, No Other, No Redness ENT: No Ear pain, No Ear discharge, No Nose pain, No Nose discharge, No Nose congestion, No Mouth pain, No Mouth swelling, No Throat pain, No Throat swelling, No Other Cardiovascular: No Chest Pain, No Palpitations, No Orthopnea, No Paroxysmal Noc. Dyspnea, No Edema, No Lt Headedness, No Other Respiratory: No Cough, No Dry, No Shortness of breath, No SOB with excertion, No Wheezing, No Hemoptysis, No Pleuritic Pain, No Sputum, No Other Gastrointestinal: Nausea, Vomiting, Abdominal Pain Genitourinary: No Dysuria, No Frequency, No Incontinence, No Hematuria, No Retention, No Other Musculoskeletal: No other, No neck pain, No shoulder pain, No arm pain, No back pain, No hand pain, No leg pain, No foot pain Skin: No Rash, No Lesions, No Jaundice, No Bruising, No Other Objective Vitals Vital Signs Date Time Temp Pulse Resp B/P (MAP) Pulse Ox O2 Delivery O2 Flow Rate FiO2 02/08/25 09:00 97.2 57 15 160/83 (108) 98 97.2 02/08/25 08:00 Room Air* 0 21 Intake/Output Intake and Output 02/08/25 07:00 Intake Total 1915 ml Output Total 3 ml Balance 1912 ml Intake Oral 1565 ml IV Total 350 ml Output Urine Total 3 ml # Voids 4 # Bowel Movements 5 Medications Current Medications Medications Dose Ordered Sig/Larry Route Start Time Stop Time Status Last Admin Dose Admin Nitroglycerin 0.4 mg Q5MINP PRN SL 02/04/25 11:15 Morphine Sulfate 2 mg Q30M PRN IV 02/04/25 11:15 Sodium Chloride 1,000 ml @ 100 mls/hr Q10H IV 02/04/25 11:15 02/05/25 21:08 100 MLS/HR Prednisone 40 mg DAILY PO 02/05/25 10:00 02/07/25 12:00 40 MG Famotidine 40 mg DAILY PO 02/05/25 10:00 02/08/25 08:39 40 MG Ondansetron HCl 4 mg Q4HPRN PRN IV 02/04/25 11:30 Ceftriaxone Sodium 50 ml @ 100 mls/hr DAILY@09 IV 02/05/25 09:00 02/08/25 08:39 100 MLS/HR Metronidazole 100 ml @ 100 mls/hr Q8HR IV 02/04/25 14:00 02/08/25 05:37 100 MLS/HR Atorvastatin Calcium 20 mg HS PO 02/04/25 22:00 02/07/25 22:45 20 MG Mesalamine 800 mg TID PO 02/04/25 22:00 02/08/25 05:38 800 MG Losartan Potassium 50 mg DAILY PO 02/06/25 10:00 02/08/25 08:39 50 MG Diagnostic Test (Pha) 1 strip ACHS 02/05/25 17:00 02/08/25 06:11 1 STRIP Insulin Human Regular ACHS SC 02/05/25 17:00 02/07/25 22:59 3 UNITS Dextrose 50 ml UD PRN IV 02/05/25 16:45 Docusate Sodium 100 mg BID PO 02/06/25 22:00 02/08/25 08:39 100 MG Hydralazine HCl 10 mg Q6HP PRN IV 02/06/25 17:45 02/07/25 23:01 10 MG Metoprolol Succinate 25 mg DAILY PO 02/08/25 10:00 02/08/25 08:38 25 MG Empaglifozin 10 mg DAILY PO 02/08/25 10:00 02/08/25 08:39 10 MG Laboratory Results Laboratory Tests 02/06/25 13:15 Labs and/or images reviewed: Labs reviewed by me, Image(s) reviewed by me Assessment/Plan Assessment/Plan Acute intractable abdominal pain with nausea: Ulcerative colitis versus acute colitis Rocephin Flagyl mesalamine prednisone, consult for GI Dr. Felisa Lieberman Sepsis due to acute ulcerative colitis Lactic acidosis Non ST-elevation [place] type 2, cardiology consult appreciated, stress test result pending, Diabetes A1c 6.4 Hypertension History of varicose veins History of GERD Daughter Dilia [phone] at bedside Discussed current diagnosis management and further plan including left heart catheterization if necessary Plan discussed with: Patient, Daughter Date of Service: Feb 08, 2025 Billing Provider: VINITA LUCERO MD Common Visit Codes: [id number] INP/OBS CARE(HIGH) VINITA LUCERO MD Feb 08, 2025 10:08
[2025-02-08 11:00] LABS: Hematocrit 39.6 % (36.0-46.0); Hemoglobin 13.3 g/dL (12.2-16.2); Mean Corpuscular Hemoglobin 30.7 pg (28.0-32.0); Mean Corpuscular Volume 91.4 fL (80.0-100.0); Nucleated Red Blood Cells % 0.0 %
[2025-02-08 11:12] LABS: Chloride 106 mmol/L (98-107); Potassium 3.8 mmol/L (3.5-5.1); Sodium 144 mmol/L (136-145)
[2025-02-08 11:13] LABS: Anion Gap 9 (5-15); Carbon Dioxide 29 mmol/L (20-31)
[2025-02-08 11:14] LABS: Calcium 9.1 mg/dL (8.7-10.4)
[2025-02-08 11:19] LABS: BUN/Creatinine Ratio 12.0 (10.0-20.0); Blood Urea Nitrogen 11 mg/dL (9-23); Glucose 153 mg/dL (74-106)
[2025-02-09] VITALS (8 sets, daily range): BP systolic 130–152; BP diastolic 50–90; PULSE 50–96; RESP 16–18; TEMP 97.8–98.4; O2SAT 94–98
--- NOTE | 2025-02-09 11:09 | DVHPN2 ---
Reviewed: Care Plan, H&P, Labs, Medications, Previous Orders, Radiology Changes from previous H/P or p: No Changes Eyes: No Pain, No Vision change, No Conjunctivae inflammation, No Eyelid inflammation, No Other, No Redness ENT: No Ear pain, No Ear discharge, No Nose pain, No Nose discharge, No Nose congestion, No Mouth pain, No Mouth swelling, No Throat pain, No Throat swelling, No Other Cardiovascular: No Chest Pain, No Palpitations, No Orthopnea, No Paroxysmal Noc. Dyspnea, No Edema, No Lt Headedness, No Other Respiratory: No Cough, No Dry, No Shortness of breath, No SOB with excertion, No Wheezing, No Hemoptysis, No Pleuritic Pain, No Sputum, No Other Gastrointestinal: Nausea, Vomiting, Abdominal Pain Genitourinary: No Dysuria, No Frequency, No Incontinence, No Hematuria, No Retention, No Other Musculoskeletal: No other, No neck pain, No shoulder pain, No arm pain, No back pain, No hand pain, No leg pain, No foot pain Skin: No Rash, No Lesions, No Jaundice, No Bruising, No Other Objective Vitals Vital Signs Date Time Temp Pulse Resp B/P (MAP) Pulse Ox O2 Delivery O2 Flow Rate FiO2 02/09/25 10:03 150/80 02/09/25 10:02 67 02/09/25 09:33 97.9 17 97 97.9 02/08/25 20:00 Room Air* 0 21 Intake/Output Intake and Output 02/09/25 07:00 Intake Total 1550 ml Balance 1550 ml Intake Oral 1350 ml IV Total 200 ml # Voids 3 # Bowel Movements 1 Medications Current Medications Medications Dose Ordered Sig/Larry Route Start Time Stop Time Status Last Admin Dose Admin Nitroglycerin 0.4 mg Q5MINP PRN SL 02/04/25 11:15 Morphine Sulfate 2 mg Q30M PRN IV 02/04/25 11:15 Sodium Chloride 1,000 ml @ 100 mls/hr Q10H IV 02/04/25 11:15 02/05/25 21:08 100 MLS/HR Prednisone 40 mg DAILY PO 02/05/25 10:00 02/09/25 10:00 40 MG Famotidine 40 mg DAILY PO 02/05/25 10:00 02/09/25 10:00 40 MG Ondansetron HCl 4 mg Q4HPRN PRN IV 02/04/25 11:30 Ceftriaxone Sodium 50 ml @ 100 mls/hr DAILY@09 IV 02/05/25 09:00 02/09/25 09:59 100 MLS/HR Metronidazole 100 ml @ 100 mls/hr Q8HR IV 02/04/25 14:00 02/09/25 05:46 100 MLS/HR Atorvastatin Calcium 20 mg HS PO 02/04/25 22:00 02/08/25 22:09 20 MG Mesalamine 800 mg TID PO 02/04/25 22:00 02/09/25 05:46 800 MG Losartan Potassium 50 mg DAILY PO 02/06/25 10:00 02/09/25 10:03 50 MG Diagnostic Test (Pha) 1 strip ACHS 02/05/25 17:00 02/09/25 05:51 1 STRIP Insulin Human Regular ACHS SC 02/05/25 17:00 02/08/25 22:07 8 UNITS Dextrose 50 ml UD PRN IV 02/05/25 16:45 Docusate Sodium 100 mg BID PO 02/06/25 22:00 02/09/25 10:02 100 MG Hydralazine HCl 10 mg Q6HP PRN IV 02/06/25 17:45 02/07/25 23:01 10 MG Metoprolol Succinate 25 mg DAILY PO 02/08/25 10:00 02/09/25 10:02 25 MG Empaglifozin 10 mg DAILY PO 02/08/25 10:00 02/09/25 10:04 10 MG Laboratory Results Laboratory Tests 02/08/25 10:35 Labs and/or images reviewed: Labs reviewed by me, Image(s) reviewed by me Assessment/Plan Assessment/Plan Acute intractable abdominal pain with nausea: Ulcerative colitis versus acute colitis Rocephin Flagyl mesalamine prednisone, consult for GI Dr. Felisa Lieberman Sepsis due to acute ulcerative colitis Lactic acidosis Non ST-elevation [place] type 2, cardiology consult appreciated, stress test result pending, Diabetes A1c 6.4 Hypertension History of varicose veins History of GERD Daughter Dilia [phone] at bedside Discussed current diagnosis management and further plan including left heart catheterization if necessary Plan discussed with: Patient Date of Service: Feb 09, 2025 Billing Provider: VINITA LUCERO MD Common Visit Codes: [id number] INP/OBS CARE(HIGH) VINITA LUCERO MD Feb 09, 2025 11:09
--- NOTE | 2025-02-09 21:51 | DVHPN2 ---
Progress Note - Dictate Date Seen: Feb 09, 2025 Medical Necessity Reason Pt with a Central, PICC or Fol: No Subjective Patient seen and examined at bedside Denies any nausea or vomiting Last bowel movement today, nonbloody Completed exercise stress test yesterday, pending results vital signs Vital Sign Date Time Temp Pulse Resp B/P (MAP) Pulse Ox O2 Delivery O2 Flow Rate FiO2 02/09/25 21:00 98.4 72 18 140/50 (80) 96 98.4 02/09/25 07:30 Room Air* 0 21 Total Intake and Output 02/08/25 02/08/25 02/09/25 15:00 23:00 07:00 Intake Total 50 ml 800 ml 700 ml Balance 50 ml 800 ml 700 ml medications Current Medications Medications Dose Ordered Sig/Larry Route Start Time Stop Time Status Last Admin Dose Admin Nitroglycerin 0.4 mg Q5MINP PRN SL 02/04/25 11:15 Morphine Sulfate 2 mg Q30M PRN IV 02/04/25 11:15 Sodium Chloride 1,000 ml @ 100 mls/hr Q10H IV 02/04/25 11:15 02/09/25 11:35 100 MLS/HR Prednisone 40 mg DAILY PO 02/05/25 10:00 02/09/25 10:00 40 MG Famotidine 40 mg DAILY PO 02/05/25 10:00 02/09/25 10:00 40 MG Ondansetron HCl 4 mg Q4HPRN PRN IV 02/04/25 11:30 Ceftriaxone Sodium 50 ml @ 100 mls/hr DAILY@09 IV 02/05/25 09:00 02/09/25 09:59 100 MLS/HR Metronidazole 100 ml @ 100 mls/hr Q8HR IV 02/04/25 14:00 02/09/25 14:54 100 MLS/HR Atorvastatin Calcium 20 mg HS PO 02/04/25 22:00 02/08/25 22:09 20 MG Mesalamine 800 mg TID PO 02/04/25 22:00 02/09/25 14:55 800 MG Losartan Potassium 50 mg DAILY PO 02/06/25 10:00 02/09/25 10:03 50 MG Diagnostic Test (Pha) 1 strip ACHS 02/05/25 17:00 02/09/25 11:35 1 STRIP Insulin Human Regular ACHS SC 02/05/25 17:00 02/09/25 11:40 4 UNITS Dextrose 50 ml UD PRN IV 02/05/25 16:45 Docusate Sodium 100 mg BID PO 02/06/25 22:00 02/09/25 10:02 100 MG Hydralazine HCl 10 mg Q6HP PRN IV 02/06/25 17:45 02/07/25 23:01 10 MG Metoprolol Succinate 25 mg DAILY PO 02/08/25 10:00 02/09/25 10:02 25 MG Empaglifozin 10 mg DAILY PO 02/08/25 10:00 02/09/25 10:04 10 MG objective General: NAD, AAOX3 Chest: lung barber clear to auscultation Heart: RRR, no murmur Abdomen:+ epigastric and left upper quadrant tenderness to palpation, +BS, soft, nondistended laboratory and microbiology Laboratory Tests 02/08/25 10:35 Test 02/08/25 10:35 Range/Units Serum Glucose 153 H 74-106 mg/dL Problems(with codes): (1) Ulcerative colitis (2) Ulcerative proctosigmoiditis (3) Elevated troponin (4) Intractable abdominal pain Prognosis Plan Diet advance to soft mechanical which she is tolerating Continue mesalamine 800 mg p.o. three times a day Prednisone 40 mg p.o. daily Discharged on Medrol Dosepak Outpatient follow up with me in 4-6 weeks to discuss further management and to discuss need for repeat panendoscopy as an outpatient Dietary Evaluation Review Comments: Nutrition Recommendation: 1) Advance to [facility] 45gm + cardiac soft diet as medically feasible 2) Refer [employer] for diabetes education 3) Monitor PO intake, lab values, weight trend, and I/O Expected Outcomes/Goals: To meet >75% estimated needs GI symptoms to improve Fu 3-5 days Plan discussed with: Patient KOLBY JORGENSEN MD Feb 09, 2025 21:51
[2025-02-10] VITALS (9 sets, daily range): BP systolic 135–152; BP diastolic 63–83; PULSE 49–64; RESP 17–18; TEMP 97.8–98.1; O2SAT 96–99
--- NOTE | 2025-02-10 08:47 | MEDREC ---
FORMERLY [facility], [facility] ASP Intervention Section I FORMERLY [facility], [facility] Intervention: Review courses of therapy (PLEASE CONSIDER D/C ANTIBIOTIC IN ABSENCE OF BACTERIAL INFECTION) JORDIN RAMEY PHARMACIST Feb 10, 2025 08:47
--- NOTE | 2025-02-10 11:50 | DVHPN2 ---
Reviewed: Care Plan, H&P, Labs, Medications, Previous Orders, Radiology Changes from previous H/P or p: No Changes Eyes: No Pain, No Vision change, No Conjunctivae inflammation, No Eyelid inflammation, No Other, No Redness ENT: No Ear pain, No Ear discharge, No Nose pain, No Nose discharge, No Nose congestion, No Mouth pain, No Mouth swelling, No Throat pain, No Throat swelling, No Other Cardiovascular: No Chest Pain, No Palpitations, No Orthopnea, No Paroxysmal Noc. Dyspnea, No Edema, No Lt Headedness, No Other Respiratory: No Cough, No Dry, No Shortness of breath, No SOB with excertion, No Wheezing, No Hemoptysis, No Pleuritic Pain, No Sputum, No Other Gastrointestinal: Nausea, Vomiting, Abdominal Pain Genitourinary: No Dysuria, No Frequency, No Incontinence, No Hematuria, No Retention, No Other Musculoskeletal: No other, No neck pain, No shoulder pain, No arm pain, No back pain, No hand pain, No leg pain, No foot pain Skin: No Rash, No Lesions, No Jaundice, No Bruising, No Other Objective Vitals Vital Signs Date Time Temp Pulse Resp B/P (MAP) Pulse Ox O2 Delivery O2 Flow Rate FiO2 02/10/25 09:17 135/68 02/10/25 09:16 61 02/10/25 09:00 97.8 17 96 97.8 02/09/25 20:00 Room Air* 0 21 Intake/Output Intake and Output 02/10/25 07:00 Intake Total 1575 ml Balance 1575 ml Intake Oral 1125 ml IV Total 450 ml # Voids 5 Medications Current Medications Medications Dose Ordered Sig/Larry Route Start Time Stop Time Status Last Admin Dose Admin Nitroglycerin 0.4 mg Q5MINP PRN SL 02/04/25 11:15 Morphine Sulfate 2 mg Q30M PRN IV 02/04/25 11:15 Sodium Chloride 1,000 ml @ 100 mls/hr Q10H IV 02/04/25 11:15 02/10/25 09:02 100 MLS/HR Prednisone 40 mg DAILY PO 02/05/25 10:00 02/10/25 09:15 40 MG Famotidine 40 mg DAILY PO 02/05/25 10:00 02/10/25 09:17 40 MG Ondansetron HCl 4 mg Q4HPRN PRN IV 02/04/25 11:30 Ceftriaxone Sodium 50 ml @ 100 mls/hr DAILY@09 IV 02/05/25 09:00 02/10/25 09:02 100 MLS/HR Metronidazole 100 ml @ 100 mls/hr Q8HR IV 02/04/25 14:00 02/10/25 06:20 100 MLS/HR Atorvastatin Calcium 20 mg HS PO 02/04/25 22:00 02/08/25 22:09 20 MG Mesalamine 800 mg TID PO 02/04/25 22:00 02/10/25 06:20 800 MG Losartan Potassium 50 mg DAILY PO 02/06/25 10:00 02/10/25 09:17 50 MG Diagnostic Test (Pha) 1 strip ACHS 02/05/25 17:00 02/10/25 06:33 1 STRIP Insulin Human Regular ACHS SC 02/05/25 17:00 02/09/25 23:05 8 UNITS Dextrose 50 ml UD PRN IV 02/05/25 16:45 Docusate Sodium 100 mg BID PO 02/06/25 22:00 02/10/25 09:16 100 MG Hydralazine HCl 10 mg Q6HP PRN IV 02/06/25 17:45 02/07/25 23:01 10 MG Metoprolol Succinate 25 mg DAILY PO 02/08/25 10:00 02/10/25 09:16 25 MG Empaglifozin 10 mg DAILY PO 02/08/25 10:00 02/10/25 09:15 10 MG Laboratory Results Laboratory Tests 02/08/25 10:35 Labs and/or images reviewed: Labs reviewed by me, Image(s) reviewed by me Assessment/Plan Assessment/Plan Acute intractable abdominal pain with nausea: Ulcerative colitis versus acute colitis Rocephin Flagyl mesalamine prednisone, consult for GI Dr. Felisa Lieberman Sepsis due to acute ulcerative colitis Lactic acidosis Non ST-elevation [place] type 2, cardiology consult appreciated, stress test result pending, Diabetes A1c 6.4 Hypertension History of varicose veins History of GERD Daughter Dilia [phone] at bedside Discussed current diagnosis management and further plan including left heart catheterization if necessary Plan discussed with: Patient Date of Service: Feb 10, 2025 Billing Provider: VINITA LUCERO MD Common Visit Codes: [id number] INP/OBS CARE(HIGH) VINITA LUCERO MD Feb 10, 2025 11:50
--- NOTE | 2025-02-10 21:24 | DVHPN2 ---
Progress Note - Dictate Date Seen: Feb 10, 2025 Medical Necessity Reason Pt with a Central, PICC or Fol: No Subjective Patient seen and examined at bedside ;ambulatory Denies any nausea or vomiting Last bowel movement today, nonbloody Completed exercise stress test yesterday, pending results vital signs Vital Sign Date Time Temp Pulse Resp B/P (MAP) Pulse Ox O2 Delivery O2 Flow Rate FiO2 02/10/25 16:54 98.1 62 17 138/71 (93) 96 98.1 02/10/25 07:30 Room Air* 0 21 Total Intake and Output 02/09/25 02/09/25 02/10/25 15:00 23:00 07:00 Intake Total 150 ml 725 ml 700 ml Balance 150 ml 725 ml 700 ml medications Current Medications Medications Dose Ordered Sig/Larry Route Start Time Stop Time Status Last Admin Dose Admin Nitroglycerin 0.4 mg Q5MINP PRN SL 02/04/25 11:15 Morphine Sulfate 2 mg Q30M PRN IV 02/04/25 11:15 Sodium Chloride 1,000 ml @ 100 mls/hr Q10H IV 02/04/25 11:15 02/10/25 09:02 100 MLS/HR Prednisone 40 mg DAILY PO 02/05/25 10:00 02/10/25 09:15 40 MG Famotidine 40 mg DAILY PO 02/05/25 10:00 02/10/25 09:17 40 MG Ondansetron HCl 4 mg Q4HPRN PRN IV 02/04/25 11:30 Ceftriaxone Sodium 50 ml @ 100 mls/hr DAILY@09 IV 02/05/25 09:00 02/10/25 09:02 100 MLS/HR Metronidazole 100 ml @ 100 mls/hr Q8HR IV 02/04/25 14:00 02/10/25 13:17 100 MLS/HR Atorvastatin Calcium 20 mg HS PO 02/04/25 22:00 02/08/25 22:09 20 MG Mesalamine 800 mg TID PO 02/04/25 22:00 02/10/25 13:17 800 MG Losartan Potassium 50 mg DAILY PO 02/06/25 10:00 02/10/25 09:17 50 MG Diagnostic Test (Pha) 1 strip ACHS 02/05/25 17:00 02/10/25 16:34 1 STRIP Insulin Human Regular ACHS SC 02/05/25 17:00 02/10/25 17:03 6 UNITS Dextrose 50 ml UD PRN IV 02/05/25 16:45 Docusate Sodium 100 mg BID PO 02/06/25 22:00 02/10/25 09:16 100 MG Hydralazine HCl 10 mg Q6HP PRN IV 02/06/25 17:45 02/07/25 23:01 10 MG Metoprolol Succinate 25 mg DAILY PO 02/08/25 10:00 02/10/25 09:16 25 MG Empaglifozin 10 mg DAILY PO 02/08/25 10:00 02/10/25 09:15 10 MG objective General: NAD, AAOX3 Chest: lung barber clear to auscultation Heart: RRR, no murmur Abdomen:+ epigastric and left upper quadrant tenderness to palpation, +BS, soft, nondistended laboratory and microbiology Laboratory Tests 02/08/25 10:35 Test 02/08/25 10:35 Range/Units Serum Glucose 153 H 74-106 mg/dL Problems(with codes): (1) Intractable abdominal pain (2) Ulcerative proctosigmoiditis (3) Lactic acidemia (4) Elevated troponin (5) Epigastric abdominal pain Prognosis Plan Decrease prednisone to 30 mg per orally Continue mesalamine Taper prednisone slowly Patient is awaiting final stress test results to decide on left heart catheterization Outpatient follow up with GI Services for ongoing management Dietary Evaluation Review Comments: Nutrition Recommendation: 1) Advance to [facility] 45gm + cardiac soft diet as medically feasible 2) Refer [employer]ist for diabetes education 3) Monitor PO intake, lab values, weight trend, and I/O Expected Outcomes/Goals: To meet >75% estimated needs GI symptoms to improve Fu 3-5 days Plan discussed with: Patient KOLBY JORGENSEN MD Feb 10, 2025 21:24
[2025-02-11] VITALS (7 sets, daily range): BP systolic 141–166; BP diastolic 73–89; PULSE 52–68; RESP 16–19; TEMP 36.7; O2SAT 94–97
--- NOTE | 2025-02-11 08:12 | DVHSR ---
APPROVED REPORT Exam: Nuclear Stress Test BMI: 0 Stress Test Details Stress Test: Pharmacologic stress testing performed using 0.4 mg of regadenoson per 5 mL given IV ov er 10 seconds. HR Resting HR: 68 bpmMax Heart Rate (APMHR): 142.215934 bpm Max HR Achieved: 68 bpmTarget HR (85% APMHR): 120.989860 bpm % of APMHR: 47.89 Recovery HR: 50 bpm BP Resting BP: 138/73 mmHg Recovery BP: 139/72 mmHg ECG Resting ECG: Sinus Bradycardia Clinical Reason for Termination: Completed protocol Nurse Comments Recieved pt. from [facility]. A/Ox4 on RA. Connected to terminal worker, VS stable. PIV flushes well. Re viewed POC. Pt. verbalized understanding of procedure including risks and side effects, agrees for st ress testing. Lexiscan stress test performed per protocol. [facility] tech administered Cardiolite. Pt. tolerated well . Pt. stable, no change on exam. VS returned to baseline. Transferred to [facility] via wheelchair w/ te ch. Stress ECG Conclusion no severe ischemia apical wal dropout clinical correlate lvef 60% NM EXAM: Myocardial Perfusion REST/STRESS Imaging Protocol: Rest Tc-99m/Stress Tc-99m 1 day Resting Data Rest SPECT myocardial perfusion imaging was performed in supine position 45 minutes following the int ravenous injection of 10.9 mCi of Tc-99m Sestamibi. Time of rest injection: 1245 Time of rest imagin Administration Route: IV Administration Site: Left Hand Pharmacologic Stress Pharmacologic stress test was performed by injecting Regadenoson 0.4 mg IV push followed by the intra venous injection of 32.6 mCi of Tc-99m Sestamibi. Time of stress injection: 1350 Time of stress imagin Administration Route: IV Administration Site: Left Hand Gated Stress SPECT was performed 65 minutes after stress injection. The images were gated to evaluate regional wall motion and calculate left ventricular ejection fracti on. Nuclear Conclusion Nuclear Findings: negative for ischemia no severe ischemia apical wal dropout clinical correlate lvef 60%
[2025-02-11] MEDS: predniSONE 20 MG TAB PO SCH (09:08)
--- NOTE | 2025-02-11 14:29 | DVHPN2 ---
Progress Note Date Seen: Feb 11, 2025 Resident Creating Document: MICHAEL YORK RESIDENT Medical Necessity Reason Pt with a Central, PICC or Fol: No Subjective Review of Systems Patient seen and examined at bedside Denies any further bloody bowel movements Denies any abdominal pain Notes some abdominal tenderness on defecation Objective vital signs Vital Sign Date Time Temp Pulse Resp B/P (MAP) Pulse Ox O2 Delivery O2 Flow Rate FiO2 02/11/25 12:55 98.2 60 17 147/86 (106) 96 98.2 02/11/25 08:00 Room Air* 0 21 Total Intake and Output 02/10/25 02/10/25 02/11/25 14:59 22:59 06:59 Intake Total 50 ml 1225 ml 940 ml Balance 50 ml 1225 ml 940 ml medications Current Medications Medications Dose Ordered Sig/Larry Route Start Time Stop Time Status Last Admin Dose Admin Nitroglycerin 0.4 mg Q5MINP PRN SL 02/04/25 11:15 Morphine Sulfate 2 mg Q30M PRN IV 02/04/25 11:15 Sodium Chloride 1,000 ml @ 100 mls/hr Q10H IV 02/04/25 11:15 02/10/25 09:02 100 MLS/HR Famotidine 40 mg DAILY PO 02/05/25 10:00 02/11/25 09:09 40 MG Ondansetron HCl 4 mg Q4HPRN PRN IV 02/04/25 11:30 Ceftriaxone Sodium 50 ml @ 100 mls/hr DAILY@09 IV 02/05/25 09:00 02/11/25 09:07 100 MLS/HR Metronidazole 100 ml @ 100 mls/hr Q8HR IV 02/04/25 14:00 02/11/25 06:22 100 MLS/HR Atorvastatin Calcium 20 mg HS PO 02/04/25 22:00 02/10/25 22:31 20 MG Mesalamine 800 mg TID PO 02/04/25 22:00 02/11/25 06:23 800 MG Losartan Potassium 50 mg DAILY PO 02/06/25 10:00 02/11/25 10:18 50 MG Diagnostic Test (Pha) 1 strip ACHS 02/05/25 17:00 02/11/25 11:38 1 STRIP Insulin Human Regular ACHS SC 02/05/25 17:00 02/10/25 22:28 4 UNITS Dextrose 50 ml UD PRN IV 02/05/25 16:45 Docusate Sodium 100 mg BID PO 02/06/25 22:00 02/11/25 09:08 100 MG Hydralazine HCl 10 mg Q6HP PRN IV 02/06/25 17:45 02/07/25 23:01 10 MG Metoprolol Succinate 25 mg DAILY PO 02/08/25 10:00 02/11/25 10:18 25 MG Empaglifozin 10 mg DAILY PO 02/08/25 10:00 02/11/25 09:08 10 MG Prednisone 30 mg DAILY PO 02/11/25 10:00 02/11/25 09:08 30 MG Examination General: NAD, AAOX3 Chest: lung barber clear to auscultation Heart: RRR, no murmur Abdomen:+ epigastric and left upper quadrant tenderness to palpation, +BS, soft, nondistended laboratory and microbiology Laboratory Tests 02/08/25 10:35 Test 02/08/25 10:35 Range/Units Serum Glucose 153 H 74-106 mg/dL Labs and/or images reviewed: Labs reviewed by me, Image(s) reviewed by me Problem List/Assessment/Plan Problem List/Assessment/Plan Abdominal pain Nausea and vomiting Ulcerative colitis exacerbation History of GERD Hyperthyroidism? Plan: Continue mesalamine and prednisone Supportive treatment recommended Full liquid diet advance to soft as tolerated colace 100mg bid ordered T3, FT4 We will continue to monitor patient; last colonoscopy 2023 Cleared for DC from GI stand point Please discharge on Medrol Dosepak with instructions to follow up with GI in the outpatient clinic Thank you so much for the opportunity to consult on your patient. GI team will follow the patient. In case of any questions or concerns please feel free to reach out. Plan discussed with Dr. Lieberman Plan discussed with: Patient, Other (RN) Dietary Evaluation Review Comments: Nutrition Recommendation: 1) Advance to [facility] 45gm + cardiac soft diet as medically feasible 2) Refer [employer] for diabetes education 3) Monitor PO intake, lab values, weight trend, and I/O Expected Outcomes/Goals: To meet >75% estimated needs GI symptoms to improve Fu 3-5 days MICHAEL YORK RESIDENT Feb 11, 2025 14:29
--- NOTE | 2025-02-11 14:34 | DVHPN2 ---
Reviewed: Care Plan, H&P, Labs, Medications, Previous Orders, Radiology Changes from previous H/P or p: No Changes Eyes: No Pain, No Vision change, No Conjunctivae inflammation, No Eyelid inflammation, No Other, No Redness ENT: No Ear pain, No Ear discharge, No Nose pain, No Nose discharge, No Nose congestion, No Mouth pain, No Mouth swelling, No Throat pain, No Throat swelling, No Other Cardiovascular: No Chest Pain, No Palpitations, No Orthopnea, No Paroxysmal Noc. Dyspnea, No Edema, No Lt Headedness, No Other Respiratory: No Cough, No Dry, No Shortness of breath, No SOB with excertion, No Wheezing, No Hemoptysis, No Pleuritic Pain, No Sputum, No Other Gastrointestinal: Nausea, Vomiting, Abdominal Pain Genitourinary: No Dysuria, No Frequency, No Incontinence, No Hematuria, No Retention, No Other Musculoskeletal: No other, No neck pain, No shoulder pain, No arm pain, No back pain, No hand pain, No leg pain, No foot pain Skin: No Rash, No Lesions, No Jaundice, No Bruising, No Other Objective Vitals Vital Signs Date Time Temp Pulse Resp B/P (MAP) Pulse Ox O2 Delivery O2 Flow Rate FiO2 02/11/25 12:55 98.2 60 17 147/86 (106) 96 98.2 02/11/25 08:00 Room Air* 0 21 Intake/Output Intake and Output 02/11/25 07:00 Intake Total 2215 ml Balance 2215 ml Intake Oral 1365 ml IV Total 850 ml # Voids 7 # Bowel Movements 1 Medications Current Medications Medications Dose Ordered Sig/Larry Route Start Time Stop Time Status Last Admin Dose Admin Nitroglycerin 0.4 mg Q5MINP PRN SL 02/04/25 11:15 Morphine Sulfate 2 mg Q30M PRN IV 02/04/25 11:15 Sodium Chloride 1,000 ml @ 100 mls/hr Q10H IV 02/04/25 11:15 02/10/25 09:02 100 MLS/HR Famotidine 40 mg DAILY PO 02/05/25 10:00 02/11/25 09:09 40 MG Ondansetron HCl 4 mg Q4HPRN PRN IV 02/04/25 11:30 Ceftriaxone Sodium 50 ml @ 100 mls/hr DAILY@09 IV 02/05/25 09:00 02/11/25 09:07 100 MLS/HR Metronidazole 100 ml @ 100 mls/hr Q8HR IV 02/04/25 14:00 02/11/25 06:22 100 MLS/HR Atorvastatin Calcium 20 mg HS PO 02/04/25 22:00 02/10/25 22:31 20 MG Mesalamine 800 mg TID PO 02/04/25 22:00 02/11/25 06:23 800 MG Losartan Potassium 50 mg DAILY PO 02/06/25 10:00 02/11/25 10:18 50 MG Diagnostic Test (Pha) 1 strip ACHS 02/05/25 17:00 02/11/25 11:38 1 STRIP Insulin Human Regular ACHS SC 02/05/25 17:00 02/10/25 22:28 4 UNITS Dextrose 50 ml UD PRN IV 02/05/25 16:45 Docusate Sodium 100 mg BID PO 02/06/25 22:00 02/11/25 09:08 100 MG Hydralazine HCl 10 mg Q6HP PRN IV 02/06/25 17:45 02/07/25 23:01 10 MG Metoprolol Succinate 25 mg DAILY PO 02/08/25 10:00 02/11/25 10:18 25 MG Empaglifozin 10 mg DAILY PO 02/08/25 10:00 02/11/25 09:08 10 MG Prednisone 30 mg DAILY PO 02/11/25 10:00 02/11/25 09:08 30 MG Laboratory Results Laboratory Tests 02/08/25 10:35 Labs and/or images reviewed: Labs reviewed by me, Image(s) reviewed by me Assessment/Plan Assessment/Plan Acute intractable abdominal pain with nausea: Ulcerative colitis versus acute colitis Rocephin Flagyl mesalamine prednisone, consult for GI Dr. Felisa Lieberman Sepsis due to acute ulcerative colitis Lactic acidosis Non ST-elevation [place] type 2, cardiology consult appreciated, Cardiolite stress test negative, cleared for discharge by cardiology Diabetes A1c 6.4 Hypertension History of varicose veins History of GERD Plan discussed with: Patient My Orders Orders - VINITA LUCERO MD Procedure Category Date Status Time * [employer] CONS 02/11/25 Transmitted Consult Date of Service: Feb 11, 2025 Billing Provider: VINITA LUCERO MD Common Visit Codes: [id number] INP/OBS CARE(HIGH) VINITA LUCERO MD Feb 11, 2025 14:34
[2025-02-11] MEDS ORDERED: PRED20TA2 PO (14:37)
[2025-02-11] MEDS ORDERED: METO25TA93 PO (14:38)
[2025-02-11] MEDS ORDERED: EMPA1TAB PO (14:38)
--- NOTE | 2025-02-12 08:41 | DVHDS2 ---
Discharge Summary Date of Admission Feb 04, 2025 at 11:05 Date of Discharge: Feb 11, 2025 Admitting Diagnosis Abdominal pain Wounds: None Labs/Diagnostic Data: Laboratory Results Test 02/11/25 17:46 02/08/25 10:35 02/06/25 13:15 02/04/25 14:51 POC Glucose 299 mg/dl (70-106) White Blood Count 6.7 10^3/uL (4.4-10.8) Red Blood Count 4.34 10^6/uL (4.0-5.20) Hemoglobin 13.3 g/dL (12.2-16.2) Hematocrit 39.6 % (36.0-46.0) Mean Corpuscular Volume 91.4 fL (80.0-100.0) Mean Corpuscular Hemoglobin 30.7 pg (28.0-32.0) Mean Corpuscular Hemoglobin Concent 33.6 g/dL (32.0-36.0) Red Cell Distribution Width 13.9 % (11.8-14.3) Platelet Count 195 10^3/uL (140-450) Mean Platelet Volume 9.5 fL (6.9-10.8) Neutrophils (%) (Auto) 61.2 % (37.0-80.0) Lymphocytes (%) (Auto) 27.3 % (10.0-50.0) Monocytes (%) (Auto) 10.9 % (0.0-12.0) Eosinophils (%) (Auto) 0.3 % (0.0-7.0) Basophils (%) (Auto) 0.3 % (0.0-2.0) Neutrophils # (Auto) 4.1 10 ^3/uL (1.6-8.6) Lymphocytes # (Auto) 1.8 10 ^3/uL (0.4-5.4) Monocytes # (Auto) 0.7 10 ^3/uL (0-1.3) Eosinophils # (Auto) 0 10 ^3/uL (0-0.8) Basophils # (Auto) 0 10 ^3/uL (0-0.2) Nucleated Red Blood Cells 0.0 % Sodium Level 144 mmol/L (136-145) Potassium Level 3.8 mmol/L (3.5-5.1) Chloride Level 106 mmol/L (98-107) Carbon Dioxide Level 29 mmol/L (20-31) Anion Gap 9 (5-15) Blood Urea Nitrogen 11 mg/dL (9-23) Creatinine 0.92 mg/dL (0.550-1.02) Glomerular Filtration Rate Calc 64 mL/min (>90) BUN/Creatinine Ratio 12.0 (10.0-20.0) Serum Glucose 153 mg/dL (74-106) Calcium Level 9.1 mg/dL (8.7-10.4) Magnesium Level 2.2 mg/dL (1.6-2.6) Triglycerides Level 61 mg/dL (< 150) Cholesterol Level 130 mg/dL (< 200) LDL Cholesterol 71 mg/dL (< 100) HDL Cholesterol 55 mg/dL (40-59) Thyroid Stimulating Hormone (TSH) 0.25 uIU/mL (0.55-4.78) Free Thyroxine (T4) Calculated 1.43 ng/dL (0.89-1.76) Total Triiodothyronine (TT3) 1.12 ng/mL (0.60-1.81) Hemoglobin A1c 6.3 % A1C (<5.7) Test 02/04/25 11:54 02/04/25 02:30 02/03/25 23:41 Lactic Acid Level 1.7 mmol/L (0.4-2.0) Troponin I High Sensitivity 28 ng/L (</=34) Total Bilirubin 0.5 mg/dL (0.2-1.0) Aspartate Amino Transferase (AST) 22 U/L (13-40) Alanine Aminotransferase (ALT) 16 U/L (7-40) Alkaline Phosphatase 103 U/L (46-116) Total Protein 6.7 g/dL (5.7-8.2) Albumin 4.1 g/dL (3.2-4.8) Lipase 24 U/L (12-53) Differential Total Cells Counted 100.0 (100) Neutrophils % (Manual) 93 (37.0-80.0) Band Neutrophils % (Manual) 4 Lymphocytes % (Manual) 2 (10.0-50.0) Monocytes % (Manual) 1 (0-12) Eosinophils % (Manual) 0 (0-7) Basophils % (Manual) 0 (0.0-2.0) Metamyelocytes % (manual) 0 Myelocytes % (Manual) 0 Promyelocytes % (Manual) 0 Blast Cells % (Manual) 0 Reactive Lymphocytes 0 Platelet Estimate Adequate Other Laboratory Tests 02/08/25 10:35 Brief Hx & Hospital Course: 79-year-old female with a history of ulcerative colitis varicose veins GERD hypertension diabetes came in for abdominal pain. Found to have sepsis secondary to acute ulcerative colitis. Started on mesalamine Flagyl and prednisone Rocephin seen by GI Dr. Felisa Lieberman type [address]-elevation [place] cardiology consult appreciated stress test is negative cleared for discharge patient feels better tolerating regular diet discharged home. Prescriptions transmitted to the pharmacy. Consults/Reason for consult GI Dr. Lieberman Operations or Procedures None Condition at Discharge: Fair Final Diagnosis/Problems List Acute intractable abdominal pain with nausea: Ulcerative colitis versus acute colitis Rocephin Flagyl mesalamine prednisone, consult for GI Dr. Felisa Lieberman Sepsis due to acute ulcerative colitis Lactic acidosis Non ST-elevation [place] type 2, cardiology consult appreciated, Cardiolite stress test negative Diabetes A1c 6.4 Hypertension History of varicose veins History of GERD Discharge Disposition: Home Discharge Instruct/Medications Diet: Cardiac 2g Na,low cholest Activity: Light activity Follow Up/Referral: Follow up with the primary Dr Medications: None Scheduled Atorvastatin Calcium (Atorvastatin Calcium), 1 TAB PO DAILY, (Reported) Empagliflozin (Jardiance), 10 MG PO DAILY Losartan Potassium (Losartan Potassium), 1 TAB PO BID, (Reported) Metformin Hydrochloride (Metformin Hcl), 1 TAB PO BID, (Reported) Metoprolol Succinate (Metoprolol Succinate Er), 1 TAB PO DAILY Prednisone (Prednisone), 20 MG PO DAILY Miscellaneous Medications Mesalamine (Delzicol), 800 MG PO, (Reported) 39 (Time taken for discharge summary 39 minutes) Discharge Statement: "Patient was advised to return to the ER or call 911 if any headaches, dizziness, shortness of breath, chest pain, abdominal pain, bleeding, fevers, or worsening of medical condition. Patient was counseled about treatment plan, medications, possible side effects, patientverbalized understanding. All questions were answered to the best of my ability. This discharge took greater then 30 minutes in planning, reviewing documentation, counseling the patient, and discussing with other team members." ASSESSMENT ASSESSMENT Hospital Course Uneventful Assessment Acute intractable abdominal pain with nausea: Ulcerative colitis versus acute colitis Rocephin Flagyl mesalamine prednisone, consult for GI Dr. Felisa Lieberman Sepsis due to acute ulcerative colitis Lactic acidosis Non ST-elevation [place] type 2, cardiology consult appreciated, Cardiolite stress test negative Diabetes A1c 6.4 Hypertension History of varicose veins History of GERD Date of Service: Feb 11, 2025 Billing Provider: VINITA LUCERO MD Common Visit Codes: 09178-RWM/OBS DISCH DAY >30min VINITA LUCERO MD Feb 12, 2025 08:41
== END 2025-02-11 18:51 | disposition home or self-care (01) | DRG 720 ==
LOC: ER 22:51 → OVERFLOW 02-04 11:05 → TELE-EAST 02-04 21:51
PROVIDERS: ADMIT Family Medicine; ATTEND Family Medicine
DX: A41.9 Sepsis, unspecified organism (principal); E87.20 Acidosis, unspecified; I21.A1 Myocardial infarction type 2; I11.0 Hypertensive heart disease with heart failure; E86.0 Dehydration; K51.90 Ulcerative colitis, unspecified, without complications; E11.9 Type 2 diabetes mellitus without complications; E78.5 Hyperlipidemia, unspecified; K21.9 Gastro-esophageal reflux disease without esophagitis; I50.22 Chronic systolic (congestive) heart failure; Z88.8 Allergy status to other drugs, medicaments and biological substances; Z82.49 Family history of ischemic heart disease and other diseases of the circulatory system; Z83.3 Family history of diabetes mellitus; Z79.899 Other long term (current) drug therapy; Z82.3 Family history of stroke; Z59.12 Inadequate housing utilities; K52.9 Noninfective gastroenteritis and colitis, unspecified
CPT/HCPCS: 36415; 71045; 74176; 78452; 80048; 80053; 80061; 82962; 83036; 83605; 83690; 83735; 84439; 84443; 84480; 84484; 85007; 85025; 85027; 93005; 93017; 93306; G0378; J1815; J3490; Q0162